=== PATIENT | female | born 1935 | race Caucasian/White ===

== ENCOUNTER 2016-05-14 08:45 | Inpatient (IN) | payer MEDICARE, OTHER ==
[~2016-05-14] VITALS: Ht 157.5 cm; Wt 57.1 kg
[2016-05-14] VITALS (28 sets, daily range): BP systolic 67–162; RESP 14–26; TEMP 93–97.9; BMI 11.3
[2016-05-14] MEDS ORDERED: NALOXONE 0.4 MG/ML AMP ONE (08:55)
[2016-05-14] MEDS ORDERED: SODIUM CHLORIDE 0.9% 1,000 ML ONE ×2 (09:10→12:02)
[2016-05-14] MEDS ORDERED: SODIUM CHLORIDE 0.9% 100 ML IV ONE (12:07)
[2016-05-14] MEDS ORDERED: CEFTRIAXONE 1 GM VIAL ONE (12:07)
[2016-05-14] MEDS ORDERED: DUONEB INH ONE ×2 (13:11)
[2016-05-14] MEDS ORDERED: SALINE FLUSH 10 ML FLUSH PRN (13:15)
[2016-05-14] MEDS ORDERED: DUONEB INH PRN (13:15)
[2016-05-14] MEDS ORDERED: ACETAMINOPHEN 325 MG TAB PO PRN (13:15)
[2016-05-14] MEDS ORDERED: BISACODYL EC 5 MG TAB PO PRN (13:15)
[2016-05-14] MEDS ORDERED: ALU/MAG/SIM 30 ML UDC PO PRN (13:15)
[2016-05-14] MEDS ORDERED: ONDANSETRON 4 MG TAB PO PRN (13:15)
[2016-05-14] MEDS ORDERED: BISACODYL 10 MG SUPP RECTAL PRN ×2 (13:15)
[2016-05-14] MEDS ORDERED: Atorvastatin 10 MG TAB PO SCH (13:15)
[2016-05-14] MEDS ORDERED: MAG HYDROX 30 ML UDC PO PRN ×2 (13:15)
[2016-05-14] MEDS: SALINE FLUSH 10 ML FLUSH SCH ×2 (13:15→20:00)
[2016-05-14] MEDS: AQUAPHOR OINT 1.75 OZ TOPICAL SCH ×2 (13:15→21:41)
[2016-05-14] MEDS ORDERED: CEPACOL LOZENGE PO PRN (13:15)
[2016-05-14] MEDS: FLUTICASONE 0.05% NA BTL NARE EACH SCH ×2 (13:15→21:00)
[2016-05-14] MEDS ORDERED: NEB-ALBUTEROL 2.5 MG/3 ML INH PRN ×2 (13:15)
[2016-05-14] MEDS: DUONEB INH SCH ×3 (15:00→23:37)
[2016-05-14] MEDS ORDERED: PHARMACY TO DOSE VANCOMYCIN IV SCH (16:10)
[2016-05-14] MEDS ORDERED: PHARMACY TO DOSE LEVAQUIN IV SCH (16:10)
[2016-05-14] MEDS ORDERED: PHARMACY TO DOSE MERREM XX SCH (16:10)
[2016-05-14] MEDS ORDERED: LEVOTHYROXINE 0.075 MG TAB PO SCH (16:23)
[2016-05-14] MEDS ORDERED: PANTOPRAZOLE 40 MG TAB PO SCH (16:27)
[2016-05-14] MEDS ORDERED: SUCCINYLCHOLINE 20 MG/ML VL ONE (16:34)
[2016-05-14] MEDS ORDERED: KETAMINE INJ 50 MG/ML VIAL ONE (16:34)
[2016-05-14] MEDS ORDERED: PROPOFOL 100 ML 100 ML IV ONE (16:35)
[2016-05-14] MEDS ORDERED: SUCCINYLCHOLINE 20 MG/ML VL IV ONE (16:40)
[2016-05-14] MEDS ORDERED: KETAMINE 500 MG/10 ML IV ONE (16:40)
[2016-05-14] MEDS ORDERED: LINEZOLID INJ IV SCH (17:00)
[2016-05-14] MEDS: LINEZOLID 600 MG/300 ML 300 ML IV SCH (17:21)
[2016-05-14] MEDS ORDERED: LACT RINGERS 1,000 ML IV ONE ×3 (17:40)
[2016-05-14] MEDS: METHYLPRED SOD SUCC 125 MG/2 ML VIAL IV SCH (18:01)
[2016-05-14] MEDS: PROPOFOL 100 ML 100 ML IV PRN (18:03)
[2016-05-14] MEDS: NEB-BROVANA 15 MCG/2 ML INH SCH (18:26)
[2016-05-14] MEDS: NEB-BUDESONIDE 0.5 MG INH SCH (18:26)
[2016-05-14] MEDS ORDERED: *PATIENT RECEIVING TUBE FEEDS, ASSESS/ADJUST MEDICATIONS NG SCH (19:25)
[2016-05-14] MEDS ORDERED: NOREPINEPHRINE 16 MG in DEXTROSE 5% 234 ML IV SCH ×2 (19:25→19:40)
[2016-05-14] MEDS ORDERED: ALU/MAG/SIM 30 ML UDC NG PRN (19:50)
[2016-05-14] MEDS ORDERED: MAG HYDROX 30 ML UDC NG PRN ×2 (19:50)
[2016-05-14] MEDS ORDERED: ONDANSETRON 4 MG TAB NG PRN (19:55)
[2016-05-14] MEDS ORDERED: MISSING DOSE XX ONE (19:55)
[2016-05-14] MEDS: LEVOFLOXACIN 750 MG/150 ML 150 ML IV SCH (21:40)
[2016-05-14] MEDS: Atorvastatin 10 MG TAB NG SCH (21:41)
[2016-05-15] VITALS (57 sets, daily range): BP systolic 79–135; RESP 6–33; TEMP 97–99.1; Ht 157.5 cm; Wt 57.1 kg
[2016-05-15] MEDS: PROPOFOL 100 ML 100 ML IV PRN ×3 (02:00→22:46)
[2016-05-15] MEDS: LACT RINGERS 1,000 ML IV SCH (02:00)
[2016-05-15] MEDS: DUONEB INH SCH ×6 (02:51→22:55)
[2016-05-15] MEDS: SODIUM CHLORIDE 0.9% FLUSH BAG 500 ML IV SCH (05:06)
[2016-05-15] MEDS ORDERED: MISSING DOSE XX ONE (05:25)
[2016-05-15] MEDS: NEB-BUDESONIDE 0.5 MG INH SCH ×2 (07:27→18:52)
[2016-05-15] MEDS: NEB-BROVANA 15 MCG/2 ML INH SCH ×2 (07:27→18:52)
[2016-05-15] MEDS: LANSOPRAZOLE 30 MG SOLUTAB NG SCH (07:43)
[2016-05-15] MEDS: LEVOTHYROXINE 0.075 MG TAB NG SCH (07:43)
[2016-05-15] MEDS: LINEZOLID 600 MG/300 ML 300 ML IV SCH ×2 (07:44→20:13)
[2016-05-15] MEDS: LEVOFLOXACIN 750 MG/150 ML 150 ML IV SCH (07:44)
[2016-05-15] MEDS: FLUTICASONE 0.05% NA BTL NARE EACH SCH ×2 (07:44→19:25)
[2016-05-15] MEDS: SALINE FLUSH 10 ML FLUSH SCH ×2 (07:44→19:57)
[2016-05-15] MEDS: METHYLPRED SOD SUCC 125 MG/2 ML VIAL IV SCH ×2 (07:45→20:13)
[2016-05-15] MEDS: AQUAPHOR OINT 1.75 OZ TOPICAL SCH ×2 (07:45→19:26)
[2016-05-15] MEDS ORDERED: SODIUM PHOSPHATE 30 MM in SODIUM CHLORIDE 0.9% 250 ML IV ONE (09:10)
[2016-05-15] MEDS ORDERED: VASOPRESSIN 40 UNITS in SODIUM CHLORIDE 0.9% 38 ML IV SCH (09:15)
[2016-05-15] MEDS: MAGNESIUM SULF 1 GM/100 ML 100 ML IV SCH ×4 (09:57→13:46)
[2016-05-15] MEDS: Atorvastatin 10 MG TAB NG SCH (20:14)
[2016-05-16] VITALS (42 sets, daily range): BP systolic 86–129; RESP 18–37; TEMP 97.1–98.2
[2016-05-16] MEDS: DUONEB INH SCH ×6 (02:22→22:49)
[2016-05-16] MEDS: LEVOTHYROXINE 0.075 MG TAB NG SCH (05:27)
[2016-05-16] MEDS: LANSOPRAZOLE 30 MG SOLUTAB NG SCH (05:27)
[2016-05-16] MEDS: PROPOFOL 100 ML 100 ML IV PRN (05:28)
[2016-05-16] MEDS: LACT RINGERS 1,000 ML IV SCH ×2 (05:28→15:15)
[2016-05-16] MEDS: SODIUM CHLORIDE 0.9% FLUSH BAG 500 ML IV SCH (05:28)
[2016-05-16] MEDS ORDERED: MISSING DOSE XX ONE (06:35)
[2016-05-16] MEDS: NEB-BUDESONIDE 0.5 MG INH SCH ×2 (07:03→18:49)
[2016-05-16] MEDS: NEB-BROVANA 15 MCG/2 ML INH SCH ×2 (07:03→18:49)
[2016-05-16] MEDS ORDERED: KCL 20 MEQ/15 ML UDC PO ONE (07:20)
[2016-05-16] MEDS: AQUAPHOR OINT 1.75 OZ TOPICAL SCH ×2 (07:53→21:00)
[2016-05-16] MEDS: METHYLPRED SOD SUCC 125 MG/2 ML VIAL IV SCH (07:54)
[2016-05-16] MEDS: SALINE FLUSH 10 ML FLUSH SCH ×2 (07:54→20:24)
[2016-05-16] MEDS: FLUTICASONE 0.05% NA BTL NARE EACH SCH ×2 (07:55→21:00)
[2016-05-16] MEDS: LINEZOLID 600 MG/300 ML 300 ML IV SCH ×2 (07:55→20:24)
[2016-05-16] MEDS ORDERED: PHARMACY TO DOSE ZOSYN IV SCH (09:40)
[2016-05-16] MEDS: PIPERACIL/TAZO 3.375GM/50ML 50 ML IV SCH ×2 (13:27→18:45)
[2016-05-16] MEDS ORDERED: METHYLPRED SOD SUCC 40 MG VIAL IV SCH (20:00)
[2016-05-16] MEDS: Atorvastatin 10 MG TAB NG SCH (21:00)
[2016-05-17] VITALS (25 sets, daily range): BP systolic 82–122; RESP 16–34; TEMP 97.8–98.4
[2016-05-17] MEDS: PIPERACIL/TAZO 3.375GM/50ML 50 ML IV SCH ×2 (00:38→06:03)
[2016-05-17] MEDS: DUONEB INH SCH ×6 (02:42→23:14)
[2016-05-17] MEDS: SODIUM CHLORIDE 0.9% FLUSH BAG 500 ML IV SCH ×2 (05:50→09:42)
[2016-05-17] MEDS: ACETAMINOPHEN 650 MG/20.3 ML UDC NG PRN ×2 (06:04→20:22)
[2016-05-17] MEDS: LEVOTHYROXINE 0.075 MG TAB NG SCH (06:04)
[2016-05-17] MEDS: LANSOPRAZOLE 30 MG SOLUTAB NG SCH (06:04)
[2016-05-17] MEDS: NEB-BROVANA 15 MCG/2 ML INH SCH ×2 (07:02→18:33)
[2016-05-17] MEDS: NEB-BUDESONIDE 0.5 MG INH SCH ×2 (07:02→18:33)
[2016-05-17] MEDS ORDERED: PHARMACY TO DOSE BACTRIM IV IV SCH (07:05)
[2016-05-17] MEDS ORDERED: POTASSIUM PHOSPHATE 30 MMOL in SODIUM CHLORIDE 0.9% 250 ML IV ONE (07:05)
[2016-05-17] MEDS ORDERED: TMP IV SCH (08:00)
[2016-05-17] MEDS ORDERED: SMX IV SCH (08:00)
[2016-05-17] MEDS ORDERED: TRIMETH IV SCH (08:13)
[2016-05-17] MEDS ORDERED: DEXTROSE 5% IV SCH (08:13)
[2016-05-17] MEDS ORDERED: SULFAMETH IV SCH (08:13)
[2016-05-17] MEDS: PREDNISONE 20 MG TAB PO SCH (09:37)
[2016-05-17] MEDS: AQUAPHOR OINT 1.75 OZ TOPICAL SCH ×2 (09:38→20:22)
[2016-05-17] MEDS: SALINE FLUSH 10 ML FLUSH SCH ×2 (09:38→20:22)
[2016-05-17] MEDS: FLUTICASONE 0.05% NA BTL NARE EACH SCH ×2 (09:38→20:23)
[2016-05-17] MEDS: MAGNESIUM SULF 1 GM/100 ML 100 ML IV SCH ×2 (09:42→11:13)
[2016-05-17] MEDS ORDERED: KETOROLAC 30 MG/ML VIAL IV ONE ×2 (11:55→20:20)
[2016-05-17] MEDS ORDERED: MISSING DOSE XX ONE (16:30)
[2016-05-17] MEDS ORDERED: TRIMETH IV ONE (17:00)
[2016-05-17] MEDS ORDERED: SULFAMETH IV ONE (17:00)
[2016-05-17] MEDS ORDERED: DEXTROSE 5% IV ONE (17:00)
[2016-05-17] MEDS: Atorvastatin 10 MG TAB NG SCH (20:04)
[2016-05-18] VITALS (24 sets, daily range): BP systolic 81–147; RESP 14–30; TEMP 97.1–98.4
[2016-05-18] MEDS: TRIMETH IV SCH ×3 (00:38→16:49)
[2016-05-18] MEDS: DEXTROSE 5% IV SCH ×3 (00:38→16:49)
[2016-05-18] MEDS: SULFAMETH IV SCH ×3 (00:38→16:49)
[2016-05-18] MEDS: DUONEB INH SCH ×6 (02:54→23:12)
[2016-05-18] MEDS: SODIUM CHLORIDE 0.9% FLUSH BAG 500 ML IV SCH (05:22)
[2016-05-18] MEDS: NEB-BUDESONIDE 0.5 MG INH SCH ×2 (06:40→18:51)
[2016-05-18] MEDS: NEB-BROVANA 15 MCG/2 ML INH SCH ×2 (06:40→18:51)
[2016-05-18] MEDS: LANSOPRAZOLE 30 MG SOLUTAB NG SCH (07:24)
[2016-05-18] MEDS: LEVOTHYROXINE 0.075 MG TAB NG SCH (07:24)
[2016-05-18] MEDS: PREDNISONE 20 MG TAB PO SCH (07:24)
[2016-05-18] MEDS: SALINE FLUSH 10 ML FLUSH SCH ×2 (07:33→20:00)
[2016-05-18] MEDS ORDERED: MISSING DOSE XX ONE ×2 (07:35→15:50)
[2016-05-18] MEDS: AQUAPHOR OINT 1.75 OZ TOPICAL SCH ×2 (08:14→21:37)
[2016-05-18] MEDS: FLUTICASONE 0.05% NA BTL NARE EACH SCH ×2 (08:15→21:36)
[2016-05-18] MEDS ORDERED: POTASSIUM CHLORIDE PREMIX 50 ML IV ONE (08:20)
[2016-05-18] MEDS: Atorvastatin 10 MG TAB NG SCH (21:36)
[2016-05-19] VITALS (40 sets, daily range): BP systolic 82–115; RESP 11–25; TEMP 97.7–99.1
[2016-05-19] MEDS: DEXTROSE 5% IV SCH ×3 (00:27→16:26)
[2016-05-19] MEDS: TRIMETH IV SCH ×3 (00:27→16:26)
[2016-05-19] MEDS: SULFAMETH IV SCH ×3 (00:27→16:26)
[2016-05-19] MEDS: DUONEB INH SCH ×6 (03:17→22:46)
[2016-05-19] MEDS: SODIUM CHLORIDE 0.9% FLUSH BAG 500 ML IV SCH (06:00)
[2016-05-19] MEDS: NEB-BROVANA 15 MCG/2 ML INH SCH ×2 (06:36→18:49)
[2016-05-19] MEDS: NEB-BUDESONIDE 0.5 MG INH SCH ×2 (06:36→18:49)
[2016-05-19] MEDS ORDERED: MISSING DOSE XX ONE ×2 (07:40→16:00)
[2016-05-19] MEDS: LANSOPRAZOLE 30 MG SOLUTAB NG SCH (07:49)
[2016-05-19] MEDS: PREDNISONE 20 MG TAB PO SCH (07:50)
[2016-05-19] MEDS: FLUTICASONE 0.05% NA BTL NARE EACH SCH ×2 (07:50→22:24)
[2016-05-19] MEDS: AQUAPHOR OINT 1.75 OZ TOPICAL SCH ×2 (07:50→22:25)
[2016-05-19] MEDS: LEVOTHYROXINE 0.075 MG TAB NG SCH (07:50)
[2016-05-19] MEDS: SALINE FLUSH 10 ML FLUSH SCH ×2 (07:51→22:27)
[2016-05-19] MEDS: Atorvastatin 10 MG TAB NG SCH (22:24)
[2016-05-20] VITALS (22 sets, daily range): BP systolic 83–140; RESP 15–22; TEMP 95.7–98.3
[2016-05-20] MEDS: TRIMETH IV SCH ×3 (01:00→16:19)
[2016-05-20] MEDS: DEXTROSE 5% IV SCH ×3 (01:00→16:19)
[2016-05-20] MEDS: SULFAMETH IV SCH ×3 (01:00→16:19)
[2016-05-20] MEDS: DUONEB INH SCH ×6 (02:30→23:21)
[2016-05-20] MEDS: SODIUM CHLORIDE 0.9% FLUSH BAG 500 ML IV SCH (03:15)
[2016-05-20] MEDS ORDERED: ALU/MAG/SIM 30 ML UDC PO PRN (03:30)
[2016-05-20] MEDS ORDERED: MAG HYDROX 30 ML UDC PO PRN (03:30)
[2016-05-20] MEDS ORDERED: ONDANSETRON 4 MG TAB PO PRN (03:30)
[2016-05-20] MEDS: PANTOPRAZOLE 40 MG TAB PO SCH (06:06)
[2016-05-20] MEDS: LEVOTHYROXINE 0.075 MG TAB PO SCH (06:06)
[2016-05-20] MEDS: NEB-BROVANA 15 MCG/2 ML INH SCH ×2 (07:06→19:40)
[2016-05-20] MEDS: NEB-BUDESONIDE 0.5 MG INH SCH ×2 (07:06→19:40)
[2016-05-20] MEDS ORDERED: MISSING DOSE XX ONE ×2 (07:25→20:30)
[2016-05-20] MEDS: SALINE FLUSH 10 ML FLUSH SCH ×2 (08:00→20:46)
[2016-05-20] MEDS: PREDNISONE 20 MG TAB PO SCH (08:28)
[2016-05-20] MEDS: FLUTICASONE 0.05% NA BTL NARE EACH SCH ×2 (08:30→21:01)
[2016-05-20] MEDS: AQUAPHOR OINT 1.75 OZ TOPICAL SCH ×2 (08:30→21:02)
[2016-05-20] MEDS: Atorvastatin 10 MG TAB PO SCH (20:46)
[2016-05-20] MEDS: ACETAMINOPHEN 325 MG TAB PO PRN (20:47)
[2016-05-21] MEDS: SULFAMETH IV SCH ×3 (01:04→17:32)
[2016-05-21] MEDS: DEXTROSE 5% IV SCH ×3 (01:04→17:32)
[2016-05-21] MEDS: TRIMETH IV SCH ×3 (01:04→17:32)
[2016-05-21] MEDS: DUONEB INH SCH ×7 (02:54→22:07)
[2016-05-21 03:46] VITALS: BP_SYST 122; RESP 16; TEMP 95.8
[2016-05-21] MEDS: LEVOTHYROXINE 0.075 MG TAB PO SCH ×2 (05:53→07:00)
[2016-05-21] MEDS: PANTOPRAZOLE 40 MG TAB PO SCH ×2 (05:53→07:00)
[2016-05-21] MEDS: SODIUM CHLORIDE 0.9% FLUSH BAG 500 ML IV SCH ×2 (05:54)
[2016-05-21] MEDS: NEB-BROVANA 15 MCG/2 ML INH SCH ×3 (06:55→18:33)
[2016-05-21] MEDS: NEB-BUDESONIDE 0.5 MG INH SCH ×3 (06:55→18:33)
[2016-05-21 08:22] VITALS: BP_SYST 110; RESP 16; TEMP 96.8
[2016-05-21] MEDS: SALINE FLUSH 10 ML FLUSH SCH ×2 (09:09→20:49)
[2016-05-21] MEDS: FLUTICASONE 0.05% NA BTL NARE EACH SCH ×2 (09:09→20:49)
[2016-05-21] MEDS: PREDNISONE 20 MG TAB PO SCH (09:10)
[2016-05-21] MEDS: AQUAPHOR OINT 1.75 OZ TOPICAL SCH ×2 (09:27→20:50)
[2016-05-21 11:30] VITALS: BP_SYST 118; RESP 16; TEMP 96.4
[2016-05-21 14:54] VITALS: BP_SYST 120; TEMP 96.8
[2016-05-21 19:00] VITALS: BP_SYST 124; RESP 18; TEMP 96.4
[2016-05-21] MEDS: Atorvastatin 10 MG TAB PO SCH (20:49)
[2016-05-21] MEDS: Dronabinol 2.5 MG CAP PO SCH (22:30)
[2016-05-21] MEDS ORDERED: MISSING DOSE XX ONE (23:15)
[2016-05-21 23:21] VITALS: BP_SYST 112
[2016-05-22] MEDS: DEXTROSE 5% IV SCH ×3 (00:19→16:33)
[2016-05-22] MEDS: SULFAMETH IV SCH ×3 (00:19→16:33)
[2016-05-22] MEDS: TRIMETH IV SCH ×3 (00:19→16:33)
[2016-05-22] MEDS: DUONEB INH SCH ×6 (02:07→22:29)
[2016-05-22] MEDS: SODIUM CHLORIDE 0.9% FLUSH BAG 500 ML IV SCH ×2 (05:31→05:32)
[2016-05-22] MEDS: PANTOPRAZOLE 40 MG TAB PO SCH (06:22)
[2016-05-22] MEDS: LEVOTHYROXINE 0.075 MG TAB PO SCH (06:22)
[2016-05-22] MEDS: NEB-BUDESONIDE 0.5 MG INH SCH ×2 (07:00→18:07)
[2016-05-22] MEDS: NEB-BROVANA 15 MCG/2 ML INH SCH ×2 (07:00→18:06)
[2016-05-22] MEDS ORDERED: MISSING DOSE XX ONE (09:05)
[2016-05-22] MEDS: SALINE FLUSH 10 ML FLUSH SCH ×2 (09:54→20:00)
[2016-05-22] MEDS: Dronabinol 2.5 MG CAP PO SCH ×2 (09:54→20:29)
[2016-05-22] MEDS: FLUTICASONE 0.05% NA BTL NARE EACH SCH ×2 (09:55→20:29)
[2016-05-22] MEDS: AQUAPHOR OINT 1.75 OZ TOPICAL SCH ×2 (09:55→21:00)
[2016-05-22] MEDS ORDERED: ONDANSETRON 4 MG VIAL IV PUSH PRN (10:50)
[2016-05-22 11:01] VITALS: BP_SYST 120; RESP 16; TEMP 97.1
[2016-05-22] MEDS ORDERED: PHARMACY TO DOSE BACTRIM IV IV SCH (14:25)
[2016-05-22 16:01] VITALS: BP_SYST 122; RESP 16
[2016-05-22 20:01] VITALS: BP_SYST 120; TEMP 97.2
[2016-05-22] MEDS: Atorvastatin 10 MG TAB PO SCH (20:29)
[2016-05-22] MEDS: MIRTAZAPINE 15 MG TAB PO SCH (20:29)
[2016-05-23] MEDS ORDERED: MISSING DOSE XX ONE ×2 (00:15→23:05)
[2016-05-23] MEDS: SULFAMETH IV SCH ×3 (00:31→16:22)
[2016-05-23] MEDS: DEXTROSE 5% IV SCH ×3 (00:31→16:22)
[2016-05-23] MEDS: TRIMETH IV SCH ×3 (00:31→16:22)
[2016-05-23 00:35] VITALS: BP_SYST 126; RESP 18
[2016-05-23] MEDS: DUONEB INH SCH ×8 (03:20→22:30)
[2016-05-23] MEDS: SODIUM CHLORIDE 0.9% FLUSH BAG 500 ML IV SCH ×2 (05:41→06:03)
[2016-05-23] MEDS: PANTOPRAZOLE 40 MG TAB PO SCH ×2 (06:04→06:57)
[2016-05-23] MEDS: LEVOTHYROXINE 0.075 MG TAB PO SCH ×2 (06:04→06:57)
[2016-05-23] MEDS: NEB-BROVANA 15 MCG/2 ML INH SCH ×4 (06:49→18:17)
[2016-05-23] MEDS: NEB-BUDESONIDE 0.5 MG INH SCH ×4 (06:49→18:17)
[2016-05-23 07:54] VITALS: BP_SYST 114; RESP 18; TEMP 93.5
[2016-05-23] MEDS: FLUTICASONE 0.05% NA BTL NARE EACH SCH ×2 (09:00→20:42)
[2016-05-23] MEDS: SALINE FLUSH 10 ML FLUSH SCH ×2 (09:13→19:36)
[2016-05-23] MEDS: Dronabinol 2.5 MG CAP PO SCH ×2 (09:14→20:41)
[2016-05-23] MEDS: AQUAPHOR OINT 1.75 OZ TOPICAL SCH ×2 (09:14→20:42)
[2016-05-23 10:01] VITALS: BP_SYST 116; TEMP 97.1
[2016-05-23 11:42] VITALS: BP_SYST 150; RESP 18; TEMP 97.9
[2016-05-23 16:14] VITALS: BP_SYST 116; RESP 20; TEMP 98
[2016-05-23 19:44] VITALS: BP_SYST 116; RESP 20; TEMP 96.9
[2016-05-23] MEDS: MIRTAZAPINE 15 MG TAB PO SCH (20:42)
[2016-05-23] MEDS: Atorvastatin 10 MG TAB PO SCH (20:42)
[2016-05-23] MEDS ORDERED: METOPROLOL 5 MG/5 ML VIAL IV ONE (21:25)
[2016-05-24] VITALS (12 sets, daily range): BP systolic 96–132; RESP 17–20; TEMP 97.1–97.7
[2016-05-24] MEDS: SULFAMETH IV SCH ×3 (00:04→16:20)
[2016-05-24] MEDS: TRIMETH IV SCH ×3 (00:04→16:20)
[2016-05-24] MEDS: DEXTROSE 5% IV SCH ×3 (00:04→16:20)
[2016-05-24] MEDS: DUONEB INH SCH ×6 (02:22→22:23)
[2016-05-24] MEDS: SODIUM CHLORIDE 0.9% FLUSH BAG 500 ML IV SCH ×2 (05:43→06:15)
[2016-05-24] MEDS: PANTOPRAZOLE 40 MG TAB PO SCH (06:17)
[2016-05-24] MEDS: LEVOTHYROXINE 0.075 MG TAB PO SCH (06:17)
[2016-05-24] MEDS: NEB-BROVANA 15 MCG/2 ML INH SCH ×2 (07:22→18:56)
[2016-05-24] MEDS: NEB-BUDESONIDE 0.5 MG INH SCH ×2 (07:22→18:56)
[2016-05-24] MEDS: FLUTICASONE 0.05% NA BTL NARE EACH SCH ×2 (08:32→21:00)
[2016-05-24] MEDS: SALINE FLUSH 10 ML FLUSH SCH ×2 (08:32→21:50)
[2016-05-24] MEDS: AQUAPHOR OINT 1.75 OZ TOPICAL SCH ×2 (08:33→21:00)
[2016-05-24] MEDS: Dronabinol 2.5 MG CAP PO SCH ×2 (08:34→21:53)
[2016-05-24] MEDS ORDERED: DIPHENHYDRAMINE 25 MG CAP PO ONE (11:06)
[2016-05-24] MEDS ORDERED: Furosemide 20 MG/2 ML VIAL IV ONE ×2 (12:00→13:00)
[2016-05-24] MEDS: Atorvastatin 10 MG TAB PO SCH (21:53)
[2016-05-24] MEDS: MIRTAZAPINE 15 MG TAB PO SCH (21:54)
[2016-05-25] VITALS (9 sets, daily range): BP systolic 110–144; RESP 16–20; TEMP 97.3–97.8
[2016-05-25] MEDS: DEXTROSE 5% IV SCH ×3 (01:29→17:50)
[2016-05-25] MEDS: TRIMETH IV SCH ×3 (01:29→17:50)
[2016-05-25] MEDS: SULFAMETH IV SCH ×3 (01:29→17:50)
[2016-05-25] MEDS: DUONEB INH SCH ×6 (02:26→22:43)
[2016-05-25] MEDS: SODIUM CHLORIDE 0.9% FLUSH BAG 500 ML IV SCH ×2 (05:18→06:35)
[2016-05-25] MEDS: PANTOPRAZOLE 40 MG TAB PO SCH (06:35)
[2016-05-25] MEDS: LEVOTHYROXINE 0.075 MG TAB PO SCH (06:35)
[2016-05-25] MEDS: NEB-BUDESONIDE 0.5 MG INH SCH ×2 (07:56→19:12)
[2016-05-25] MEDS: NEB-BROVANA 15 MCG/2 ML INH SCH ×2 (07:56→19:12)
[2016-05-25] MEDS: SALINE FLUSH 10 ML FLUSH SCH ×2 (08:00→20:46)
[2016-05-25] MEDS: Dronabinol 2.5 MG CAP PO SCH ×2 (10:20→21:00)
[2016-05-25] MEDS: FLUTICASONE 0.05% NA BTL NARE EACH SCH ×2 (10:21→20:46)
[2016-05-25] MEDS: AQUAPHOR OINT 1.75 OZ TOPICAL SCH ×2 (10:21→20:46)
[2016-05-25] MEDS: MAG HYDROX 30 ML UDC PO PRN (17:50)
[2016-05-25] MEDS: ENOXAPARIN 60 MG/0.6 ML SYR SUBQ SCH (20:45)
[2016-05-25] MEDS: SODIUM CHLORIDE 0.9% 1,000 ML IV SCH (20:46)
[2016-05-25] MEDS: MIRTAZAPINE 15 MG TAB PO SCH (21:00)
[2016-05-25] MEDS: Atorvastatin 10 MG TAB PO SCH (21:00)
[2016-05-26] MEDS ORDERED: MISSING DOSE XX ONE ×3 (00:20→23:55)
[2016-05-26] MEDS: TRIMETH IV SCH ×3 (00:41→18:42)
[2016-05-26] MEDS: DEXTROSE 5% IV SCH ×3 (00:41→18:42)
[2016-05-26] MEDS: SULFAMETH IV SCH ×3 (00:41→18:42)
[2016-05-26] MEDS: DUONEB INH SCH ×6 (02:43→22:53)
[2016-05-26 02:53] VITALS: BP_SYST 110; RESP 16; TEMP 97.5
[2016-05-26] MEDS: NEB-BROVANA 15 MCG/2 ML INH SCH ×2 (05:15→19:00)
[2016-05-26] MEDS: NEB-BUDESONIDE 0.5 MG INH SCH ×2 (05:15→19:00)
[2016-05-26] MEDS: SODIUM CHLORIDE 0.9% FLUSH BAG 500 ML IV SCH ×2 (05:47)
[2016-05-26] MEDS: ENOXAPARIN 60 MG/0.6 ML SYR SUBQ SCH ×2 (06:32→18:12)
[2016-05-26] MEDS: PANTOPRAZOLE 40 MG TAB PO SCH (07:00)
[2016-05-26] MEDS: LEVOTHYROXINE 0.075 MG TAB PO SCH (07:00)
[2016-05-26 08:06] VITALS: BP_SYST 130; RESP 16; TEMP 96.1
[2016-05-26] MEDS: SALINE FLUSH 10 ML FLUSH SCH ×2 (08:57→21:34)
[2016-05-26] MEDS: FLUTICASONE 0.05% NA BTL NARE EACH SCH ×2 (08:57→21:34)
[2016-05-26] MEDS: Dronabinol 2.5 MG CAP PO SCH ×2 (08:58→21:35)
[2016-05-26] MEDS: AQUAPHOR OINT 1.75 OZ TOPICAL SCH ×2 (08:58→21:34)
[2016-05-26 11:47] VITALS: BP_SYST 120; TEMP 96.2
[2016-05-26] MEDS: ACETAMINOPHEN 325 MG TAB PO PRN (14:05)
[2016-05-26 15:19] VITALS: BP_SYST 116
[2016-05-26] MEDS: SODIUM CHLORIDE 0.9% 1,000 ML IV SCH (17:59)
[2016-05-26] MEDS: MAG HYDROX 30 ML UDC PO PRN (18:12)
[2016-05-26 19:23] VITALS: BP_SYST 120; RESP 16; TEMP 97
[2016-05-26] MEDS: Atorvastatin 10 MG TAB PO SCH (21:00)
[2016-05-26] MEDS: MIRTAZAPINE 15 MG TAB PO SCH (21:00)
[2016-05-27] VITALS (12 sets, daily range): BP systolic 110–140; RESP 14–18; TEMP 96.4–98.9
[2016-05-27] MEDS: SULFAMETH IV SCH ×3 (00:29→17:53)
[2016-05-27] MEDS: TRIMETH IV SCH ×3 (00:29→17:53)
[2016-05-27] MEDS: DEXTROSE 5% IV SCH ×3 (00:29→17:53)
[2016-05-27] MEDS: DUONEB INH SCH ×6 (02:23→22:21)
[2016-05-27] MEDS: SODIUM CHLORIDE 0.9% 1,000 ML IV SCH ×2 (04:19→17:42)
[2016-05-27] MEDS: LEVOTHYROXINE 0.075 MG TAB PO SCH (05:10)
[2016-05-27] MEDS: SODIUM CHLORIDE 0.9% FLUSH BAG 500 ML IV SCH ×2 (05:10)
[2016-05-27] MEDS: PANTOPRAZOLE 40 MG TAB PO SCH (05:10)
[2016-05-27] MEDS: NEB-BROVANA 15 MCG/2 ML INH SCH ×2 (06:50→18:55)
[2016-05-27] MEDS: NEB-BUDESONIDE 0.5 MG INH SCH ×2 (06:50→18:55)
[2016-05-27] MEDS: FLUTICASONE 0.05% NA BTL NARE EACH SCH ×2 (09:00→20:33)
[2016-05-27] MEDS: Dronabinol 2.5 MG CAP PO SCH (09:00)
[2016-05-27] MEDS: AQUAPHOR OINT 1.75 OZ TOPICAL SCH ×2 (09:00→20:34)
[2016-05-27] MEDS ORDERED: MISSING DOSE XX ONE ×3 (09:05→20:40)
[2016-05-27] MEDS: SALINE FLUSH 10 ML FLUSH SCH ×2 (10:25→20:33)
[2016-05-27] MEDS ORDERED: CEFAZOLIN 1,000 MG in DEXTROSE 5% 50 ML IV ONE (12:25)
[2016-05-27] MEDS ORDERED: LACT RINGERS 1,000 ML IV SCH (12:50)
[2016-05-27] MEDS ORDERED: LIDOCAINE 1% BUFFERED 1 ML SYR INTRADERM PRN (12:50)
[2016-05-27] MEDS ORDERED: *PATIENT RECEIVING TUBE FEEDS, ASSESS/ADJUST MEDICATIONS PEG SCH (19:20)
[2016-05-27] MEDS ORDERED: ACETAMINOPHEN 650 MG/20.3 ML UDC NG PRN (19:25)
[2016-05-27] MEDS ORDERED: ALU/MAG/SIM 30 ML UDC PEG PRN (19:25)
[2016-05-27] MEDS ORDERED: MAG HYDROX 30 ML UDC PEG PRN ×2 (19:30)
[2016-05-27] MEDS: Atorvastatin 10 MG TAB PEG SCH (20:32)
[2016-05-27] MEDS: Dronabinol 2.5 MG CAP PEG SCH (20:49)
[2016-05-27] MEDS: ACETAMINOPHEN 650 MG/20.3 ML UDC PEG PRN (20:50)
[2016-05-27] MEDS ORDERED: MIRTAZAPINE 15 MG TAB PEG SCH (21:00)
[2016-05-28] VITALS: BP_SYST 112; RESP 20; TEMP 98.2
[2016-05-28] MEDS: TRIMETH IV SCH ×2 (01:05→09:12)
[2016-05-28] MEDS: SULFAMETH IV SCH ×2 (01:05→09:12)
[2016-05-28] MEDS: DEXTROSE 5% IV SCH ×2 (01:05→09:12)
[2016-05-28] MEDS: DUONEB INH SCH ×6 (02:46→23:20)
[2016-05-28] MEDS: SODIUM CHLORIDE 0.9% FLUSH BAG 500 ML IV SCH ×2 (04:31→04:32)
[2016-05-28] MEDS: SODIUM CHLORIDE 0.9% 1,000 ML IV SCH (04:45)
[2016-05-28 04:53] VITALS: BP_SYST 124; RESP 18; TEMP 98.5
[2016-05-28] MEDS: LEVOTHYROXINE 0.075 MG TAB PEG SCH (06:07)
[2016-05-28] MEDS: LANSOPRAZOLE 30 MG SOLUTAB PEG SCH (06:07)
[2016-05-28] MEDS: ACETAMINOPHEN 650 MG/20.3 ML UDC PEG PRN ×2 (06:12→14:42)
[2016-05-28] MEDS: NEB-BROVANA 15 MCG/2 ML INH SCH ×2 (06:35→19:19)
[2016-05-28] MEDS: NEB-BUDESONIDE 0.5 MG INH SCH ×2 (06:35→19:19)
[2016-05-28 07:36] VITALS: BP_SYST 132; RESP 22; TEMP 99
[2016-05-28] MEDS ORDERED: MISSING DOSE XX ONE (07:40)
[2016-05-28] MEDS: Dronabinol 2.5 MG CAP PEG SCH ×3 (09:00→20:20)
[2016-05-28] MEDS: SALINE FLUSH 10 ML FLUSH SCH ×2 (09:11→20:19)
[2016-05-28] MEDS: AQUAPHOR OINT 1.75 OZ TOPICAL SCH ×2 (09:11→20:20)
[2016-05-28] MEDS: FLUTICASONE 0.05% NA BTL NARE EACH SCH ×2 (09:11→20:20)
[2016-05-28 11:02] VITALS: BP_SYST 108; RESP 18; TEMP 97.1
[2016-05-28] MEDS ORDERED: QUEtiapine 25 MG TAB PO SCH (15:05)
[2016-05-28] MEDS: NEB-NACL 3% 4 ML NEBU INH SCH ×2 (16:00→23:20)
[2016-05-28 19:26] VITALS: BP_SYST 118; RESP 20; TEMP 97.2
[2016-05-28] MEDS: Atorvastatin 10 MG TAB PEG SCH (20:20)
[2016-05-28] MEDS: TRIMETHOPRIM PEG SCH (20:20)
[2016-05-28] MEDS: QUEtiapine 25 MG TAB GTUBE SCH (20:20)
[2016-05-28] MEDS: SULFAMETHOXAZOLE PEG SCH (20:20)
[2016-05-28 22:56] VITALS: BP_SYST 106; RESP 18; TEMP 98
[2016-05-29] MEDS: DUONEB INH SCH ×6 (02:53→23:32)
[2016-05-29 02:58] VITALS: BP_SYST 118; RESP 20; TEMP 98
[2016-05-29] MEDS: SODIUM CHLORIDE 0.9% FLUSH BAG 500 ML IV SCH ×2 (03:28)
[2016-05-29] MEDS: ACETAMINOPHEN 650 MG/20.3 ML UDC PEG PRN ×2 (04:41→09:19)
[2016-05-29] MEDS: LANSOPRAZOLE 30 MG SOLUTAB PEG SCH (06:21)
[2016-05-29] MEDS: LEVOTHYROXINE 0.075 MG TAB PEG SCH (06:21)
[2016-05-29] MEDS: BACITRACIN OINT TOPICAL SCH ×3 (06:46→19:52)
[2016-05-29 07:00] VITALS: BP_SYST 130; RESP 22; TEMP 96.8
[2016-05-29] MEDS: NEB-NACL 3% 4 ML NEBU INH SCH ×6 (07:12→23:31)
[2016-05-29] MEDS: NEB-BROVANA 15 MCG/2 ML INH SCH ×2 (07:12→19:28)
[2016-05-29] MEDS: NEB-BUDESONIDE 0.5 MG INH SCH ×2 (07:12→19:28)
[2016-05-29] MEDS ORDERED: PHARMACY TO DOSE VANCOMYCIN IV SCH (07:55)
[2016-05-29] MEDS ORDERED: PHARMACY TO DOSE ZOSYN IV SCH (07:55)
[2016-05-29] MEDS ORDERED: DUONEB INH PRN (07:55)
[2016-05-29] MEDS ORDERED: SODIUM CHLORIDE 0.9% 1,000 ML IV SCH (08:10)
[2016-05-29] MEDS: Dronabinol 2.5 MG CAP PEG SCH ×2 (09:00→19:51)
[2016-05-29] MEDS: PIPERACIL/TAZO 4.5GM/100ML 100 ML IV SCH ×3 (09:13→17:54)
[2016-05-29] MEDS: QUEtiapine 25 MG TAB GTUBE SCH (09:14)
[2016-05-29] MEDS: TRIMETHOPRIM PEG SCH ×2 (09:15→19:51)
[2016-05-29] MEDS: SULFAMETHOXAZOLE PEG SCH ×2 (09:15→19:51)
[2016-05-29] MEDS: AQUAPHOR OINT 1.75 OZ TOPICAL SCH ×2 (09:16→19:51)
[2016-05-29] MEDS: FLUTICASONE 0.05% NA BTL NARE EACH SCH ×2 (09:16→19:51)
[2016-05-29] MEDS: SALINE FLUSH 10 ML FLUSH SCH ×2 (09:16→19:50)
[2016-05-29] MEDS: VANCOMYCIN 1,250 MG in SODIUM CHLORIDE 0.9% 250 ML IV SCH ×2 (10:22→19:49)
[2016-05-29 10:51] VITALS: BP_SYST 108; RESP 20; TEMP 96.3
[2016-05-29 14:32] VITALS: BP_SYST 116; TEMP 96
[2016-05-29] MEDS: Atorvastatin 10 MG TAB PEG SCH (19:51)
[2016-05-29 21:08] VITALS: BP_SYST 112; RESP 20; TEMP 96.6
[2016-05-30] VITALS (7 sets, daily range): BP systolic 110–120; RESP 16–20; TEMP 96.2–96.9
[2016-05-30] MEDS: PIPERACIL/TAZO 4.5GM/100ML 100 ML IV SCH ×5 (00:09→23:27)
[2016-05-30] MEDS: DUONEB INH SCH ×6 (02:58→22:31)
[2016-05-30] MEDS: NEB-NACL 3% 4 ML NEBU INH SCH ×6 (02:58→22:31)
[2016-05-30] MEDS: SODIUM CHLORIDE 0.9% FLUSH BAG 500 ML IV SCH ×2 (05:09)
[2016-05-30] MEDS: NEB-BUDESONIDE 0.5 MG INH SCH ×2 (06:21→18:31)
[2016-05-30] MEDS: NEB-BROVANA 15 MCG/2 ML INH SCH ×2 (06:21→18:32)
[2016-05-30] MEDS ORDERED: MISSING DOSE XX ONE (06:40)
[2016-05-30] MEDS: LANSOPRAZOLE 30 MG SOLUTAB PEG SCH (06:51)
[2016-05-30] MEDS: LEVOTHYROXINE 0.075 MG TAB PEG SCH (06:56)
[2016-05-30] MEDS: TRIMETHOPRIM PEG SCH (09:15)
[2016-05-30] MEDS: SULFAMETHOXAZOLE PEG SCH (09:15)
[2016-05-30] MEDS: FLUTICASONE 0.05% NA BTL NARE EACH SCH ×2 (09:15→21:18)
[2016-05-30] MEDS: BACITRACIN OINT TOPICAL SCH ×2 (09:16→21:17)
[2016-05-30] MEDS: AQUAPHOR OINT 1.75 OZ TOPICAL SCH ×2 (09:16→21:17)
[2016-05-30] MEDS: VANCOMYCIN 1,250 MG in SODIUM CHLORIDE 0.9% 250 ML IV SCH ×2 (09:16→21:42)
[2016-05-30] MEDS: Dronabinol 2.5 MG CAP PEG SCH ×2 (09:16→21:17)
[2016-05-30] MEDS: SALINE FLUSH 10 ML FLUSH SCH ×2 (09:17→21:16)
[2016-05-30] MEDS: MAGNESIUM SULF 1 GM/100 ML 100 ML IV SCH ×2 (09:30→10:56)
[2016-05-30] MEDS ORDERED: CHLORASEPTIC 180 ML BTL PO PRN (16:40)
[2016-05-30] MEDS: Atorvastatin 10 MG TAB PEG SCH (21:17)
[2016-05-30] MEDS ORDERED: DEXTROSE 50% SYRINGE 50 ML IV ONE (23:45)
[2016-05-30] MEDS ORDERED: DEXTROSE 50% 50 ML ONE (23:49)
[2016-05-31] VITALS (7 sets, daily range): BP systolic 108–142; RESP 16–30; TEMP 96.3–98.5
[2016-05-31] MEDS: NEB-NACL 3% 4 ML NEBU INH SCH ×8 (03:43→22:53)
[2016-05-31] MEDS: DUONEB INH SCH ×8 (03:43→22:53)
[2016-05-31] MEDS: SODIUM CHLORIDE 0.9% FLUSH BAG 500 ML IV SCH ×2 (05:29→05:39)
[2016-05-31] MEDS: PIPERACIL/TAZO 4.5GM/100ML 100 ML IV SCH ×3 (05:29→18:05)
[2016-05-31] MEDS: LEVOTHYROXINE 0.075 MG TAB PEG SCH (06:18)
[2016-05-31] MEDS: LANSOPRAZOLE 30 MG SOLUTAB PEG SCH (06:18)
[2016-05-31] MEDS: NEB-BUDESONIDE 0.5 MG INH SCH ×2 (06:43→19:12)
[2016-05-31] MEDS: NEB-BROVANA 15 MCG/2 ML INH SCH ×2 (06:43→19:12)
[2016-05-31] MEDS: VANCOMYCIN 1,250 MG in SODIUM CHLORIDE 0.9% 250 ML IV SCH ×2 (08:35→20:51)
[2016-05-31] MEDS: SALINE FLUSH 10 ML FLUSH SCH ×2 (08:35→20:50)
[2016-05-31] MEDS: Dronabinol 2.5 MG CAP PEG SCH ×2 (08:35→20:50)
[2016-05-31] MEDS: AQUAPHOR OINT 1.75 OZ TOPICAL SCH ×2 (08:35→20:52)
[2016-05-31] MEDS: FLUTICASONE 0.05% NA BTL NARE EACH SCH ×2 (08:35→20:51)
[2016-05-31] MEDS: BACITRACIN OINT TOPICAL SCH ×2 (08:36→20:52)
[2016-05-31] MEDS ORDERED: HALOPERIDOL 5 MG/ML VIAL IV PRN (17:30)
[2016-05-31] MEDS: Atorvastatin 10 MG TAB PEG SCH (20:50)
[2016-06-01] VITALS (7 sets, daily range): BP systolic 108–120; RESP 16–20; TEMP 96.6–98.3
[2016-06-01] MEDS: PIPERACIL/TAZO 4.5GM/100ML 100 ML IV SCH ×5 (00:17→23:08)
[2016-06-01] MEDS: NEB-NACL 3% 4 ML NEBU INH SCH ×6 (02:56→23:22)
[2016-06-01] MEDS: DUONEB INH SCH ×6 (02:56→23:22)
[2016-06-01] MEDS: NEB-BROVANA 15 MCG/2 ML INH SCH ×2 (05:12→17:18)
[2016-06-01] MEDS: NEB-BUDESONIDE 0.5 MG INH SCH ×2 (05:13→17:18)
[2016-06-01] MEDS: SODIUM CHLORIDE 0.9% FLUSH BAG 500 ML IV SCH ×2 (05:24→06:49)
[2016-06-01] MEDS: LANSOPRAZOLE 30 MG SOLUTAB PEG SCH (06:50)
[2016-06-01] MEDS: LEVOTHYROXINE 0.075 MG TAB PEG SCH (06:50)
[2016-06-01] MEDS: VANCOMYCIN 1,250 MG in SODIUM CHLORIDE 0.9% 250 ML IV SCH ×3 (08:15→21:00)
[2016-06-01] MEDS: Dronabinol 2.5 MG CAP PEG SCH ×2 (08:15→20:34)
[2016-06-01] MEDS: AQUAPHOR OINT 1.75 OZ TOPICAL SCH ×2 (08:15→20:34)
[2016-06-01] MEDS: FLUTICASONE 0.05% NA BTL NARE EACH SCH ×2 (08:15→20:33)
[2016-06-01] MEDS: SALINE FLUSH 10 ML FLUSH SCH ×2 (08:15→20:33)
[2016-06-01] MEDS: BACITRACIN OINT TOPICAL SCH ×2 (08:16→20:35)
[2016-06-01] MEDS: METRONIDAZOLE 500MG/100ML 100 ML IV SCH ×3 (10:28→23:48)
[2016-06-01] MEDS: Atorvastatin 10 MG TAB PEG SCH (20:33)
[2016-06-02] MEDS: NEB-NACL 3% 4 ML NEBU INH SCH ×6 (03:04→23:46)
[2016-06-02] MEDS: DUONEB INH SCH ×6 (03:04→23:46)
[2016-06-02 03:15] VITALS: BP_SYST 120; RESP 16; TEMP 98.2
[2016-06-02] MEDS: SODIUM CHLORIDE 0.9% FLUSH BAG 500 ML IV SCH ×2 (06:00→06:34)
[2016-06-02] MEDS: PIPERACIL/TAZO 4.5GM/100ML 100 ML IV SCH ×4 (06:33→23:20)
[2016-06-02] MEDS: LEVOTHYROXINE 0.075 MG TAB PEG SCH (06:33)
[2016-06-02] MEDS: LANSOPRAZOLE 30 MG SOLUTAB PEG SCH (06:33)
[2016-06-02] MEDS: NEB-BUDESONIDE 0.5 MG INH SCH ×2 (06:51→18:36)
[2016-06-02] MEDS: NEB-BROVANA 15 MCG/2 ML INH SCH ×2 (06:51→18:36)
[2016-06-02 08:03] VITALS: BP_SYST 108; RESP 20; TEMP 98.5
[2016-06-02] MEDS: Dronabinol 2.5 MG CAP PEG SCH ×2 (08:38→21:05)
[2016-06-02] MEDS: FLUTICASONE 0.05% NA BTL NARE EACH SCH ×2 (08:38→21:06)
[2016-06-02] MEDS: SALINE FLUSH 10 ML FLUSH SCH ×2 (08:39→21:06)
[2016-06-02] MEDS: METRONIDAZOLE 500MG/100ML 100 ML IV SCH ×2 (08:39→16:10)
[2016-06-02] MEDS: BACITRACIN OINT TOPICAL SCH ×2 (08:39→21:07)
[2016-06-02] MEDS: AQUAPHOR OINT 1.75 OZ TOPICAL SCH ×2 (08:39→21:07)
[2016-06-02] MEDS ORDERED: KCL 20 MEQ/15 ML UDC PEG ONE (11:10)
[2016-06-02 11:49] VITALS: BP_SYST 108; RESP 20; TEMP 98.3
[2016-06-02] MEDS: AMITRIPTYLINE 25 MG TAB PEG SCH (12:27)
[2016-06-02 15:57] VITALS: BP_SYST 112; RESP 20; TEMP 98.6
[2016-06-02] MEDS: VANCOMYCIN 750 MG in SODIUM CHLORIDE 0.9% 250 ML IV SCH (16:10)
[2016-06-02] MEDS: SACCHA BOULARDII 250MG CAP PEG SCH ×2 (17:58→21:06)
[2016-06-02 20:03] VITALS: BP_SYST 126; RESP 18; TEMP 97.1
[2016-06-02] MEDS: Atorvastatin 10 MG TAB PEG SCH (21:06)
[2016-06-02] MEDS: MIRTAZAPINE 15 MG TAB PEG SCH (21:06)
[2016-06-02 23:33] VITALS: BP_SYST 116; RESP 20; TEMP 98
[2016-06-03] MEDS: METRONIDAZOLE 500MG/100ML 100 ML IV SCH ×3 (00:01→18:06)
[2016-06-03] MEDS: NEB-NACL 3% 4 ML NEBU INH SCH ×6 (02:45→23:14)
[2016-06-03] MEDS: DUONEB INH SCH ×6 (02:45→23:15)
[2016-06-03 03:15] VITALS: BP_SYST 136; RESP 20; TEMP 97.2
[2016-06-03] MEDS: VANCOMYCIN 750 MG in SODIUM CHLORIDE 0.9% 250 ML IV SCH ×2 (04:02→18:05)
[2016-06-03] MEDS: NEB-BROVANA 15 MCG/2 ML INH SCH ×2 (05:22→17:05)
[2016-06-03] MEDS: NEB-BUDESONIDE 0.5 MG INH SCH ×2 (05:22→17:05)
[2016-06-03] MEDS: SODIUM CHLORIDE 0.9% FLUSH BAG 500 ML IV SCH ×2 (06:00→06:31)
[2016-06-03] MEDS: PIPERACIL/TAZO 4.5GM/100ML 100 ML IV SCH ×4 (06:30→23:49)
[2016-06-03] MEDS: LANSOPRAZOLE 30 MG SOLUTAB PEG SCH (06:30)
[2016-06-03] MEDS: LEVOTHYROXINE 0.075 MG TAB PEG SCH (06:30)
[2016-06-03 07:37] VITALS: BP_SYST 118; RESP 20; TEMP 96.5
[2016-06-03] MEDS: AMITRIPTYLINE 25 MG TAB PEG SCH (09:21)
[2016-06-03] MEDS: FLUTICASONE 0.05% NA BTL NARE EACH SCH ×2 (09:21→23:01)
[2016-06-03] MEDS: SALINE FLUSH 10 ML FLUSH SCH ×2 (09:21→20:00)
[2016-06-03] MEDS: SACCHA BOULARDII 250MG CAP PEG SCH ×3 (09:22→21:00)
[2016-06-03] MEDS: Dronabinol 2.5 MG CAP PEG SCH ×2 (09:22→21:00)
[2016-06-03] MEDS: AQUAPHOR OINT 1.75 OZ TOPICAL SCH ×2 (09:23→23:01)
[2016-06-03] MEDS: BACITRACIN OINT TOPICAL SCH ×2 (09:23→23:01)
[2016-06-03 11:00] VITALS: BP_SYST 122; RESP 20; TEMP 96.3
[2016-06-03] MEDS ORDERED: DEXTROSE 50% SYRINGE 50 ML IV ONE (12:40)
[2016-06-03 15:05] VITALS: BP_SYST 138; RESP 20; TEMP 97.3
[2016-06-03] MEDS: POTASSIUM CHLORIDE PREMIX 50 ML IV SCH ×3 (16:15→18:38)
[2016-06-03] MEDS: PANTOPRAZOLE 80 MG in SODIUM CHLORIDE 0.9% 250 ML IV SCH (18:49)
[2016-06-03 20:50] VITALS: BP_SYST 122; RESP 20; TEMP 98.1
[2016-06-03] MEDS: Atorvastatin 10 MG TAB PEG SCH (21:00)
[2016-06-03] MEDS: MIRTAZAPINE 15 MG TAB PEG SCH (21:00)
[2016-06-03 23:07] VITALS: BP_SYST 114; RESP 18; TEMP 96.1
[2016-06-04] MEDS: METRONIDAZOLE 500MG/100ML 100 ML IV SCH ×3 (00:53→15:46)
[2016-06-04] MEDS: NEB-NACL 3% 4 ML NEBU INH SCH ×6 (02:22→22:39)
[2016-06-04] MEDS: DUONEB INH SCH ×6 (02:22→22:39)
[2016-06-04 03:00] VITALS: BP_SYST 124; RESP 18; TEMP 97.9
[2016-06-04] MEDS: VANCOMYCIN 750 MG in SODIUM CHLORIDE 0.9% 250 ML IV SCH ×2 (04:13→16:27)
[2016-06-04] MEDS: PANTOPRAZOLE 80 MG in SODIUM CHLORIDE 0.9% 250 ML IV SCH ×2 (04:13→12:06)
[2016-06-04] MEDS: SODIUM CHLORIDE 0.9% FLUSH BAG 500 ML IV SCH ×2 (05:10)
[2016-06-04] MEDS: LEVOTHYROXINE 0.075 MG TAB PEG SCH (06:25)
[2016-06-04] MEDS: PIPERACIL/TAZO 4.5GM/100ML 100 ML IV SCH ×3 (06:51→17:40)
[2016-06-04] MEDS: NEB-BUDESONIDE 0.5 MG INH SCH ×2 (06:58→18:35)
[2016-06-04] MEDS: NEB-BROVANA 15 MCG/2 ML INH SCH ×2 (06:58→18:35)
[2016-06-04 07:27] VITALS: BP_SYST 122; RESP 18; TEMP 97.3
[2016-06-04] MEDS: SALINE FLUSH 10 ML FLUSH SCH ×2 (08:00→20:00)
[2016-06-04] MEDS: SACCHA BOULARDII 250MG CAP PEG SCH ×3 (08:48→21:48)
[2016-06-04] MEDS: Dronabinol 2.5 MG CAP PEG SCH ×2 (08:48→21:47)
[2016-06-04] MEDS: AMITRIPTYLINE 25 MG TAB PEG SCH (08:48)
[2016-06-04] MEDS: BACITRACIN OINT TOPICAL SCH ×2 (08:49→21:48)
[2016-06-04] MEDS: AQUAPHOR OINT 1.75 OZ TOPICAL SCH ×2 (08:49→21:48)
[2016-06-04] MEDS: FLUTICASONE 0.05% NA BTL NARE EACH SCH ×2 (08:58→21:48)
[2016-06-04 12:00] VITALS: BP_SYST 115; RESP 18; TEMP 97
[2016-06-04] MEDS ORDERED: DEXTROSE 5% SALINE 0.9% 1,000 ML IV SCH (15:15)
[2016-06-04 15:26] VITALS: BP_SYST 128; RESP 18; TEMP 97
[2016-06-04] MEDS: POTASSIUM CHLORIDE PREMIX 50 ML IV SCH ×3 (18:38→23:11)
[2016-06-04 20:13] VITALS: BP_SYST 132; RESP 20; TEMP 96.6
[2016-06-04] MEDS: GELCLAIR 15 ML GEL TOPICAL SCH (21:00)
[2016-06-04] MEDS: MIRTAZAPINE 15 MG TAB PEG SCH (21:47)
[2016-06-04] MEDS: Atorvastatin 10 MG TAB PEG SCH (21:47)
[2016-06-04 23:28] VITALS: BP_SYST 130; RESP 18; TEMP 96.3
[2016-06-05] VITALS (7 sets, daily range): BP systolic 112–150; RESP 16–22; TEMP 94.6–97.8
[2016-06-05] MEDS: SUCRALFATE 1GM/10ML SUSP TOPICAL SCH ×4 (00:47→16:35)
[2016-06-05] MEDS: PIPERACIL/TAZO 4.5GM/100ML 100 ML IV SCH ×4 (00:48→18:35)
[2016-06-05] MEDS: PANTOPRAZOLE 80 MG in SODIUM CHLORIDE 0.9% 250 ML IV SCH ×2 (00:48→12:45)
[2016-06-05] MEDS: METRONIDAZOLE 500MG/100ML 100 ML IV SCH ×3 (02:14→16:29)
[2016-06-05] MEDS: NEB-NACL 3% 4 ML NEBU INH SCH ×6 (02:47→22:53)
[2016-06-05] MEDS: DUONEB INH SCH ×6 (02:47→22:53)
[2016-06-05] MEDS: VANCOMYCIN 750 MG in SODIUM CHLORIDE 0.9% 250 ML IV SCH ×2 (04:17→17:14)
[2016-06-05] MEDS: SODIUM CHLORIDE 0.9% FLUSH BAG 500 ML IV SCH ×2 (06:00→06:09)
[2016-06-05] MEDS: ACETAMINOPHEN 650 MG/20.3 ML UDC PEG PRN (06:10)
[2016-06-05] MEDS: LEVOTHYROXINE 0.075 MG TAB PEG SCH (06:11)
[2016-06-05] MEDS: NEB-BUDESONIDE 0.5 MG INH SCH ×2 (07:10→18:55)
[2016-06-05] MEDS: NEB-BROVANA 15 MCG/2 ML INH SCH ×2 (07:10→18:55)
[2016-06-05] MEDS: SALINE FLUSH 10 ML FLUSH SCH ×2 (09:23→20:49)
[2016-06-05] MEDS: AMITRIPTYLINE 25 MG TAB PEG SCH (09:52)
[2016-06-05] MEDS: Dronabinol 2.5 MG CAP PEG SCH ×2 (09:52→20:50)
[2016-06-05] MEDS: FLUTICASONE 0.05% NA BTL NARE EACH SCH ×2 (09:52→20:50)
[2016-06-05] MEDS: SACCHA BOULARDII 250MG CAP PEG SCH ×3 (09:52→20:49)
[2016-06-05] MEDS: AQUAPHOR OINT 1.75 OZ TOPICAL SCH ×2 (09:53→20:51)
[2016-06-05] MEDS: BACITRACIN OINT TOPICAL SCH ×2 (09:53→20:51)
[2016-06-05] MEDS: POTASSIUM CHLORIDE PREMIX 50 ML IV SCH ×5 (10:28→23:10)
[2016-06-05] MEDS: NYSTATIN 500,000 UNITS/5 ML SUSP SWISH.SWAL SCH ×4 (11:28→20:50)
[2016-06-05] MEDS: KCL 20 MEQ/15 ML UDC PEG SCH (16:35)
[2016-06-05] MEDS ORDERED: MISSING DOSE XX ONE (17:25)
[2016-06-05] MEDS: Atorvastatin 10 MG TAB PEG SCH (20:49)
[2016-06-05] MEDS: MIRTAZAPINE 15 MG TAB PEG SCH (20:50)
[2016-06-05] MEDS ORDERED: KCL 20 MEQ/15 ML UDC PO ONE (22:55)
[2016-06-05] MEDS: MAGNESIUM SULF 1 GM/100 ML 100 ML IV SCH (23:22)
[2016-06-06] MEDS: MAGNESIUM SULF 1 GM/100 ML 100 ML IV SCH (02:08)
[2016-06-06] MEDS: POTASSIUM CHLORIDE PREMIX 50 ML IV SCH ×3 (02:09→04:28)
[2016-06-06] MEDS: DUONEB INH SCH ×6 (02:37→22:07)
[2016-06-06] MEDS: NEB-NACL 3% 4 ML NEBU INH SCH ×6 (02:37→22:07)
[2016-06-06] MEDS: METRONIDAZOLE 500MG/100ML 100 ML IV SCH ×3 (03:04→15:52)
[2016-06-06 04:03] VITALS: BP_SYST 120; RESP 20; TEMP 95.7
[2016-06-06] MEDS: VANCOMYCIN 750 MG in SODIUM CHLORIDE 0.9% 250 ML IV SCH ×2 (04:29→16:00)
[2016-06-06] MEDS: SODIUM CHLORIDE 0.9% FLUSH BAG 500 ML IV SCH ×3 (04:29→05:25)
[2016-06-06] MEDS: PIPERACIL/TAZO 4.5GM/100ML 100 ML IV SCH ×4 (05:40→18:42)
[2016-06-06] MEDS: SUCRALFATE 1GM/10ML SUSP TOPICAL SCH ×3 (05:40→17:03)
[2016-06-06] MEDS: LANSOPRAZOLE 30 MG SOLUTAB PEG SCH (05:40)
[2016-06-06] MEDS: LEVOTHYROXINE 0.075 MG TAB PEG SCH (05:40)
[2016-06-06] MEDS: NEB-BROVANA 15 MCG/2 ML INH SCH ×2 (06:53→18:13)
[2016-06-06] MEDS: NEB-BUDESONIDE 0.5 MG INH SCH ×2 (06:53→18:13)
[2016-06-06 07:26] VITALS: BP_SYST 110; RESP 18; TEMP 97.6
[2016-06-06] MEDS: KCL 20 MEQ/15 ML UDC PEG SCH (08:35)
[2016-06-06] MEDS: Dronabinol 2.5 MG CAP PEG SCH ×2 (08:35→21:33)
[2016-06-06] MEDS: NYSTATIN 500,000 UNITS/5 ML SUSP SWISH.SWAL SCH ×3 (08:36→17:29)
[2016-06-06] MEDS: AMITRIPTYLINE 25 MG TAB PEG SCH (08:36)
[2016-06-06] MEDS: SALINE FLUSH 10 ML FLUSH SCH ×2 (08:36→21:33)
[2016-06-06] MEDS: FLUTICASONE 0.05% NA BTL NARE EACH SCH ×2 (08:36→21:33)
[2016-06-06] MEDS: SACCHA BOULARDII 250MG CAP PEG SCH ×3 (08:37→21:33)
[2016-06-06] MEDS: AQUAPHOR OINT 1.75 OZ TOPICAL SCH ×2 (08:37→21:34)
[2016-06-06] MEDS: BACITRACIN OINT TOPICAL SCH ×2 (08:45→21:34)
[2016-06-06 10:51] VITALS: BP_SYST 132; RESP 18; TEMP 97.5
[2016-06-06 15:30] VITALS: BP_SYST 130; RESP 18; TEMP 97
[2016-06-06] MEDS: GELCLAIR 15 ML GEL TOPICAL SCH ×2 (17:03→21:34)
[2016-06-06] MEDS: VANCOMYCIN 1,000 MG in SODIUM CHLORIDE 0.9% 250 ML IV SCH (17:29)
[2016-06-06 19:20] VITALS: BP_SYST 132; RESP 18; TEMP 96.4
[2016-06-06] MEDS: ACETAMINOPHEN 650 MG/20.3 ML UDC PEG PRN (21:32)
[2016-06-06] MEDS: MIRTAZAPINE 15 MG TAB PEG SCH (21:33)
[2016-06-06] MEDS: Atorvastatin 10 MG TAB PEG SCH (21:33)
[2016-06-06 22:53] VITALS: BP_SYST 118; RESP 18; TEMP 96.9
[2016-06-07] MEDS: METRONIDAZOLE 500MG/100ML 100 ML IV SCH ×4 (00:20→23:02)
[2016-06-07] MEDS: NYSTATIN 500,000 UNITS/5 ML SUSP SWISH.SWAL SCH ×5 (00:20→20:22)
[2016-06-07] MEDS: PIPERACIL/TAZO 4.5GM/100ML 100 ML IV SCH ×5 (00:20→23:02)
[2016-06-07] MEDS: NEB-NACL 3% 4 ML NEBU INH SCH ×6 (02:28→22:16)
[2016-06-07] MEDS: DUONEB INH SCH ×6 (02:28→22:16)
[2016-06-07 02:35] VITALS: BP_SYST 112; RESP 18
[2016-06-07] MEDS: VANCOMYCIN 1,000 MG in SODIUM CHLORIDE 0.9% 250 ML IV SCH ×2 (04:55→17:58)
[2016-06-07] MEDS: SODIUM CHLORIDE 0.9% FLUSH BAG 500 ML IV SCH ×3 (06:00→06:08)
[2016-06-07] MEDS: LEVOTHYROXINE 0.075 MG TAB PEG SCH (06:07)
[2016-06-07] MEDS: LANSOPRAZOLE 30 MG SOLUTAB PEG SCH (06:07)
[2016-06-07] MEDS: SALINE FLUSH 10 ML FLUSH SCH ×2 (06:07→20:23)
[2016-06-07] MEDS: ACETAMINOPHEN 650 MG/20.3 ML UDC PEG PRN ×2 (06:07→13:34)
[2016-06-07] MEDS: NEB-BUDESONIDE 0.5 MG INH SCH ×2 (07:21→18:22)
[2016-06-07] MEDS: NEB-BROVANA 15 MCG/2 ML INH SCH ×2 (07:21→18:22)
[2016-06-07 07:44] VITALS: BP_SYST 118; RESP 20; TEMP 97
[2016-06-07] MEDS: SACCHA BOULARDII 250MG CAP PEG SCH ×3 (09:00→20:21)
[2016-06-07] MEDS: FLUTICASONE 0.05% NA BTL NARE EACH SCH ×2 (10:10→20:22)
[2016-06-07] MEDS: AQUAPHOR OINT 1.75 OZ TOPICAL SCH ×2 (10:11→20:22)
[2016-06-07] MEDS: KCL 20 MEQ/15 ML UDC PEG SCH (10:11)
[2016-06-07] MEDS: GELCLAIR 15 ML GEL TOPICAL SCH ×3 (10:13→20:23)
[2016-06-07] MEDS: BACITRACIN OINT TOPICAL SCH ×2 (10:14→20:23)
[2016-06-07] MEDS: AMITRIPTYLINE 25 MG TAB PEG SCH (10:15)
[2016-06-07] MEDS: Dronabinol 2.5 MG CAP PEG SCH ×2 (10:15→20:23)
[2016-06-07 11:20] VITALS: BP_SYST 112; RESP 20; TEMP 97.1
[2016-06-07] MEDS: METOCLOPRAMIDE 10 MG/2 ML VIAL IV PUSH SCH ×2 (13:32→17:06)
[2016-06-07] MEDS: DOCUSATE SOD 100 MG/10 ML UDC PEG SCH ×2 (13:32→20:21)
[2016-06-07] MEDS: SENNA 8.6 MG TAB PEG SCH ×2 (13:32→20:21)
[2016-06-07 15:45] VITALS: BP_SYST 120; RESP 18; TEMP 96.4
[2016-06-07 19:16] VITALS: BP_SYST 122; RESP 18; TEMP 97.8
[2016-06-07] MEDS: Atorvastatin 10 MG TAB PEG SCH (20:22)
[2016-06-07] MEDS: MIRTAZAPINE 15 MG TAB PEG SCH (20:22)
[2016-06-07 23:08] VITALS: BP_SYST 132; RESP 18; TEMP 97.9
[2016-06-08] MEDS: DUONEB INH SCH ×6 (03:02→23:20)
[2016-06-08] MEDS: NEB-NACL 3% 4 ML NEBU INH SCH ×6 (03:02→23:20)
[2016-06-08 03:31] VITALS: BP_SYST 110; RESP 18; TEMP 96.5
[2016-06-08] MEDS: VANCOMYCIN 1,000 MG in SODIUM CHLORIDE 0.9% 250 ML IV SCH ×2 (04:14→16:44)
[2016-06-08] MEDS: ACETAMINOPHEN 650 MG/20.3 ML UDC PEG PRN ×2 (04:46→21:26)
[2016-06-08] MEDS ORDERED: MISSING DOSE XX ONE ×3 (04:50→09:50)
[2016-06-08] MEDS: SODIUM CHLORIDE 0.9% FLUSH BAG 500 ML IV SCH ×3 (04:57→05:42)
[2016-06-08] MEDS: LEVOTHYROXINE 0.075 MG TAB PEG SCH (05:44)
[2016-06-08] MEDS: PIPERACIL/TAZO 4.5GM/100ML 100 ML IV SCH ×4 (05:44→23:47)
[2016-06-08] MEDS: METOCLOPRAMIDE 10 MG/2 ML VIAL IV PUSH SCH ×3 (05:44→16:43)
[2016-06-08] MEDS: NEB-BROVANA 15 MCG/2 ML INH SCH ×2 (06:46→19:58)
[2016-06-08] MEDS: NEB-BUDESONIDE 0.5 MG INH SCH ×2 (06:46→19:58)
[2016-06-08] MEDS ORDERED: LANSOPRAZOLE 15 MG PEG SCH (07:00)
[2016-06-08 07:33] VITALS: BP_SYST 118; RESP 20; TEMP 97.1
[2016-06-08] MEDS: AMITRIPTYLINE 25 MG TAB PEG SCH (09:00)
[2016-06-08] MEDS: AQUAPHOR OINT 1.75 OZ TOPICAL SCH ×2 (10:10→21:24)
[2016-06-08] MEDS: FLUTICASONE 0.05% NA BTL NARE EACH SCH ×2 (10:10→21:23)
[2016-06-08] MEDS: BENZOCAINE 7.5% MM PRN (10:10)
[2016-06-08] MEDS: METRONIDAZOLE 500MG/100ML 100 ML IV SCH (10:11)
[2016-06-08] MEDS: SALINE FLUSH 10 ML FLUSH SCH ×2 (10:11→21:23)
[2016-06-08] MEDS: GELCLAIR 15 ML GEL TOPICAL SCH ×3 (10:16→21:27)
[2016-06-08] MEDS: KCL 20 MEQ/15 ML UDC PEG SCH (10:17)
[2016-06-08] MEDS: NYSTATIN 500,000 UNITS/5 ML SUSP SWISH.SWAL SCH ×4 (10:17→21:25)
[2016-06-08] MEDS: BACITRACIN OINT TOPICAL SCH ×2 (10:18→21:23)
[2016-06-08] MEDS: Dronabinol 2.5 MG CAP PEG SCH ×2 (10:18→21:25)
[2016-06-08] MEDS: SENNA 8.6 MG TAB PEG SCH ×2 (10:18→21:25)
[2016-06-08] MEDS: SACCHA BOULARDII 250MG CAP PEG SCH ×3 (10:20→21:25)
[2016-06-08] MEDS: DOCUSATE SOD 100 MG/10 ML UDC PEG SCH ×2 (10:20→21:25)
[2016-06-08] MEDS ORDERED: PROCHLORPERAZINE 10 MG/2 ML VIAL IV PRN (10:25)
[2016-06-08 11:28] VITALS: BP_SYST 122; RESP 20; TEMP 96.2
[2016-06-08 16:09] VITALS: BP_SYST 110; RESP 18; TEMP 97.1
[2016-06-08 19:45] VITALS: BP_SYST 128; RESP 18; TEMP 96.5
[2016-06-08] MEDS: MIRTAZAPINE 15 MG TAB PEG SCH (21:25)
[2016-06-08] MEDS: Atorvastatin 10 MG TAB PEG SCH (21:25)
[2016-06-08 23:33] VITALS: BP_SYST 114; RESP 16; TEMP 97.9
[2016-06-09] MEDS: NEB-NACL 3% 4 ML NEBU INH SCH ×6 (03:00→23:34)
[2016-06-09] MEDS: DUONEB INH SCH ×6 (03:00→23:34)
[2016-06-09] MEDS: POTASSIUM CHLORIDE PREMIX 10 MEQ in PART FILL PIGGYBACK 1 EA IV SCH ×4 (03:53→07:03)
[2016-06-09 03:59] VITALS: BP_SYST 142; RESP 18; TEMP 96.7
[2016-06-09] MEDS: MAGNESIUM SULF 1 GM/100 ML 100 ML IV SCH ×2 (04:37→08:20)
[2016-06-09] MEDS: VANCOMYCIN 1,000 MG in SODIUM CHLORIDE 0.9% 250 ML IV SCH ×2 (05:53→16:53)
[2016-06-09] MEDS: SODIUM CHLORIDE 0.9% FLUSH BAG 500 ML IV SCH ×3 (05:53→05:54)
[2016-06-09] MEDS: LEVOTHYROXINE 0.075 MG TAB PEG SCH (05:55)
[2016-06-09] MEDS: LANSOPRAZOLE 15 MG PEG SCH (05:55)
[2016-06-09] MEDS: METOCLOPRAMIDE 10 MG/2 ML VIAL IV PUSH SCH ×3 (05:55→16:43)
[2016-06-09] MEDS: NEB-BROVANA 15 MCG/2 ML INH SCH ×2 (06:42→18:55)
[2016-06-09] MEDS: NEB-BUDESONIDE 0.5 MG INH SCH ×2 (06:42→18:55)
[2016-06-09 07:15] VITALS: BP_SYST 140; RESP 18; TEMP 97
[2016-06-09] MEDS: PIPERACIL/TAZO 4.5GM/100ML 100 ML IV SCH ×3 (08:19→17:45)
[2016-06-09] MEDS: SALINE FLUSH 10 ML FLUSH SCH ×2 (08:20→20:25)
[2016-06-09] MEDS: DOCUSATE SOD 100 MG/10 ML UDC PEG SCH ×2 (09:18→20:26)
[2016-06-09] MEDS: KCL 20 MEQ/15 ML UDC PEG SCH (09:18)
[2016-06-09] MEDS: FLUTICASONE 0.05% NA BTL NARE EACH SCH ×2 (09:18→20:26)
[2016-06-09] MEDS: Dronabinol 2.5 MG CAP PEG SCH ×2 (09:19→20:26)
[2016-06-09] MEDS: SACCHA BOULARDII 250MG CAP PEG SCH ×3 (09:19→20:27)
[2016-06-09] MEDS: SENNA 8.6 MG TAB PEG SCH ×2 (09:20→20:26)
[2016-06-09] MEDS: AMITRIPTYLINE 25 MG TAB PEG SCH (09:20)
[2016-06-09] MEDS: NYSTATIN 500,000 UNITS/5 ML SUSP SWISH.SWAL SCH ×4 (09:31→20:26)
[2016-06-09] MEDS: AQUAPHOR OINT 1.75 OZ TOPICAL SCH ×2 (09:32→20:28)
[2016-06-09] MEDS: GELCLAIR 15 ML GEL TOPICAL SCH ×3 (09:32→20:28)
[2016-06-09] MEDS: BACITRACIN OINT TOPICAL SCH ×2 (09:32→20:28)
[2016-06-09 11:53] VITALS: BP_SYST 110; RESP 18; TEMP 97.2
[2016-06-09 15:34] VITALS: BP_SYST 120; RESP 18; TEMP 97.2
[2016-06-09 19:27] VITALS: BP_SYST 122; RESP 18; TEMP 96.5
[2016-06-09] MEDS: Atorvastatin 10 MG TAB PEG SCH (20:26)
[2016-06-09] MEDS: MIRTAZAPINE 15 MG TAB PEG SCH (20:27)
[2016-06-09 23:00] VITALS: BP_SYST 118; RESP 18; TEMP 96.8
[2016-06-10] MEDS: NEB-NACL 3% 4 ML NEBU INH SCH ×6 (03:00→22:57)
[2016-06-10] MEDS: DUONEB INH SCH ×6 (03:00→22:57)
[2016-06-10 04:51] VITALS: BP_SYST 126; RESP 18; TEMP 96.5
[2016-06-10] MEDS: SODIUM CHLORIDE 0.9% FLUSH BAG 500 ML IV SCH ×3 (06:00)
[2016-06-10] MEDS: METOCLOPRAMIDE 10 MG/2 ML VIAL IV PUSH SCH ×3 (06:30→15:24)
[2016-06-10] MEDS: LANSOPRAZOLE 15 MG PEG SCH (06:30)
[2016-06-10] MEDS: LEVOTHYROXINE 0.075 MG TAB PEG SCH (06:30)
[2016-06-10] MEDS: NEB-BUDESONIDE 0.5 MG INH SCH ×2 (06:36→18:46)
[2016-06-10] MEDS: NEB-BROVANA 15 MCG/2 ML INH SCH ×2 (06:36→18:46)
[2016-06-10 08:22] VITALS: BP_SYST 120; RESP 18; TEMP 96.3
[2016-06-10] MEDS: AMITRIPTYLINE 25 MG TAB PEG SCH (08:37)
[2016-06-10] MEDS: SACCHA BOULARDII 250MG CAP PEG SCH ×3 (08:37→22:15)
[2016-06-10] MEDS: Dronabinol 2.5 MG CAP PEG SCH ×2 (08:37→22:28)
[2016-06-10] MEDS: DOCUSATE SOD 100 MG/10 ML UDC PEG SCH ×2 (08:37→22:14)
[2016-06-10] MEDS: SENNA 8.6 MG TAB PEG SCH ×2 (08:37→22:17)
[2016-06-10] MEDS: GELCLAIR 15 ML GEL TOPICAL SCH ×3 (08:37→22:18)
[2016-06-10] MEDS: NYSTATIN 500,000 UNITS/5 ML SUSP SWISH.SWAL SCH ×4 (08:38→22:18)
[2016-06-10] MEDS: KCL 20 MEQ/15 ML UDC PEG SCH (08:38)
[2016-06-10] MEDS: SALINE FLUSH 10 ML FLUSH SCH ×2 (08:38→20:00)
[2016-06-10] MEDS: BACITRACIN OINT TOPICAL SCH ×2 (08:38→22:20)
[2016-06-10] MEDS: AQUAPHOR OINT 1.75 OZ TOPICAL SCH ×2 (08:38→22:19)
[2016-06-10] MEDS: FLUTICASONE 0.05% NA BTL NARE EACH SCH ×2 (08:38→22:14)
[2016-06-10 12:03] VITALS: BP_SYST 122; RESP 18; TEMP 96.8
[2016-06-10 15:15] VITALS: BP_SYST 140; RESP 18; TEMP 96.9
[2016-06-10] MEDS: METRONIDAZOLE 500 MG TAB PEG SCH ×2 (18:26→22:15)
[2016-06-10 20:23] VITALS: BP_SYST 122; RESP 18; TEMP 96.7
[2016-06-10] MEDS: Atorvastatin 10 MG TAB PEG SCH (22:16)
[2016-06-10] MEDS: MIRTAZAPINE 15 MG TAB PEG SCH (22:17)
[2016-06-10 23:17] VITALS: BP_SYST 126; TEMP 97.1
[2016-06-11] MEDS: DUONEB INH SCH ×6 (02:24→22:26)
[2016-06-11] MEDS: NEB-NACL 3% 4 ML NEBU INH SCH ×6 (02:24→22:26)
[2016-06-11] MEDS: SODIUM CHLORIDE 0.9% FLUSH BAG 500 ML IV SCH ×3 (06:00)
[2016-06-11] MEDS: NEB-BROVANA 15 MCG/2 ML INH SCH ×2 (06:40→18:19)
[2016-06-11] MEDS: NEB-BUDESONIDE 0.5 MG INH SCH ×2 (06:40→18:19)
[2016-06-11] MEDS: LEVOTHYROXINE 0.075 MG TAB PEG SCH (06:50)
[2016-06-11] MEDS: LANSOPRAZOLE 15 MG PEG SCH (06:50)
[2016-06-11] MEDS: METOCLOPRAMIDE 10 MG/2 ML VIAL IV PUSH SCH ×3 (06:50→15:43)
[2016-06-11 08:03] VITALS: BP_SYST 128; RESP 18; TEMP 97.4
[2016-06-11] MEDS: METRONIDAZOLE 500 MG TAB PEG SCH ×3 (09:55→21:06)
[2016-06-11] MEDS: SENNA 8.6 MG TAB PEG SCH ×2 (09:56→21:06)
[2016-06-11] MEDS: AMITRIPTYLINE 25 MG TAB PEG SCH (09:56)
[2016-06-11] MEDS: Dronabinol 2.5 MG CAP PEG SCH ×2 (09:56→21:05)
[2016-06-11] MEDS: GELCLAIR 15 ML GEL TOPICAL SCH ×3 (09:56→21:05)
[2016-06-11] MEDS: NYSTATIN 500,000 UNITS/5 ML SUSP SWISH.SWAL SCH ×4 (09:56→21:05)
[2016-06-11] MEDS: DOCUSATE SOD 100 MG/10 ML UDC PEG SCH ×2 (09:56→21:05)
[2016-06-11] MEDS: KCL 20 MEQ/15 ML UDC PEG SCH (09:56)
[2016-06-11] MEDS: FLUTICASONE 0.05% NA BTL NARE EACH SCH ×2 (09:57→21:07)
[2016-06-11] MEDS: BACITRACIN OINT TOPICAL SCH ×2 (09:58→21:08)
[2016-06-11] MEDS: SALINE FLUSH 10 ML FLUSH SCH ×2 (09:58→21:04)
[2016-06-11] MEDS: SACCHA BOULARDII 250MG CAP PEG SCH ×3 (09:58→21:06)
[2016-06-11] MEDS: AQUAPHOR OINT 1.75 OZ TOPICAL SCH ×2 (09:58→21:07)
[2016-06-11 11:35] VITALS: BP_SYST 118; RESP 18; TEMP 96.6
[2016-06-11 13:39] VITALS: BP_SYST 108
[2016-06-11] MEDS ORDERED: BISACODYL 10 MG SUPP RECTAL ONE (14:40)
[2016-06-11 15:07] VITALS: BP_SYST 108; RESP 18; TEMP 96.7
[2016-06-11 19:00] VITALS: BP_SYST 112; RESP 20; TEMP 97.1
[2016-06-11] MEDS ORDERED: Carvedilol 3.125 MG TAB PO SCH (21:00)
[2016-06-11] MEDS: MIRTAZAPINE 15 MG TAB PEG SCH (21:06)
[2016-06-11] MEDS: Furosemide 20 MG/2 ML VIAL IV SCH (21:06)
[2016-06-11] MEDS: Atorvastatin 10 MG TAB PEG SCH (21:06)
[2016-06-12] VITALS: BP_SYST 108; RESP 18; TEMP 96.9
[2016-06-12] MEDS: NEB-NACL 3% 4 ML NEBU INH SCH ×6 (02:19→22:07)
[2016-06-12] MEDS: DUONEB INH SCH ×6 (02:19→22:06)
[2016-06-12 03:31] VITALS: BP_SYST 118; RESP 18; TEMP 96.9
[2016-06-12] MEDS: SODIUM CHLORIDE 0.9% FLUSH BAG 500 ML IV SCH ×3 (05:19→06:28)
[2016-06-12] MEDS: METOCLOPRAMIDE 10 MG/2 ML VIAL IV PUSH SCH ×3 (06:29→16:02)
[2016-06-12] MEDS: LANSOPRAZOLE 15 MG PEG SCH (06:30)
[2016-06-12] MEDS: LEVOTHYROXINE 0.075 MG TAB PEG SCH (06:30)
[2016-06-12] MEDS: NEB-BROVANA 15 MCG/2 ML INH SCH ×2 (06:39→19:00)
[2016-06-12] MEDS: NEB-BUDESONIDE 0.5 MG INH SCH ×2 (06:39→19:00)
[2016-06-12 07:51] VITALS: BP_SYST 112; RESP 16; TEMP 97
[2016-06-12] MEDS: NYSTATIN 500,000 UNITS/5 ML SUSP SWISH.SWAL SCH (09:33)
[2016-06-12] MEDS: DOCUSATE SOD 100 MG/10 ML UDC PEG SCH ×2 (09:33→20:40)
[2016-06-12] MEDS: METRONIDAZOLE 500 MG TAB PEG SCH ×3 (09:34→20:40)
[2016-06-12] MEDS: AMITRIPTYLINE 25 MG TAB PEG SCH (09:34)
[2016-06-12] MEDS: Carvedilol 3.125 MG TAB PEG SCH ×2 (09:34→20:40)
[2016-06-12] MEDS: SACCHA BOULARDII 250MG CAP PEG SCH ×3 (09:34→20:42)
[2016-06-12] MEDS: KCL 20 MEQ/15 ML UDC PEG SCH (09:34)
[2016-06-12] MEDS: SENNA 8.6 MG TAB PEG SCH ×2 (09:34→20:40)
[2016-06-12] MEDS: Dronabinol 2.5 MG CAP PEG SCH ×2 (09:34→20:42)
[2016-06-12] MEDS: GELCLAIR 15 ML GEL TOPICAL SCH ×3 (09:35→20:43)
[2016-06-12] MEDS: BACITRACIN OINT TOPICAL SCH ×2 (09:35→20:43)
[2016-06-12] MEDS: FLUTICASONE 0.05% NA BTL NARE EACH SCH ×2 (09:35→20:40)
[2016-06-12] MEDS: AQUAPHOR OINT 1.75 OZ TOPICAL SCH ×2 (09:35→20:45)
[2016-06-12] MEDS: Furosemide 20 MG/2 ML VIAL IV SCH ×2 (09:35→20:39)
[2016-06-12] MEDS: SALINE FLUSH 10 ML FLUSH SCH ×2 (09:36→20:39)
[2016-06-12] MEDS: ACETAMINOPHEN 650 MG/20.3 ML UDC PEG PRN (10:04)
[2016-06-12 11:41] VITALS: BP_SYST 112; RESP 16; TEMP 96.8
[2016-06-12 14:46] VITALS: BP_SYST 102; RESP 18; TEMP 97
[2016-06-12] MEDS ORDERED: BISACODYL 10 MG SUPP RECTAL ONE (17:50)
[2016-06-12 19:39] VITALS: BP_SYST 100; RESP 16; TEMP 97.4
[2016-06-12] MEDS: Atorvastatin 10 MG TAB PEG SCH (20:40)
[2016-06-12] MEDS: MIRTAZAPINE 15 MG TAB PEG SCH (20:40)
[2016-06-13] VITALS (8 sets, daily range): BP systolic 100–126; RESP 16–18; TEMP 97.6–98.3
[2016-06-13] MEDS: NEB-NACL 3% 4 ML NEBU INH SCH ×6 (02:39→22:54)
[2016-06-13] MEDS: DUONEB INH SCH ×6 (02:39→22:54)
[2016-06-13] MEDS: SODIUM CHLORIDE 0.9% FLUSH BAG 500 ML IV SCH ×3 (02:46→04:45)
[2016-06-13] MEDS: LANSOPRAZOLE 15 MG PEG SCH (04:40)
[2016-06-13] MEDS: LEVOTHYROXINE 0.075 MG TAB PEG SCH (04:40)
[2016-06-13] MEDS: METOCLOPRAMIDE 10 MG/2 ML VIAL IV PUSH SCH ×3 (04:41→16:32)
[2016-06-13] MEDS ORDERED: DILTIAZEM 125 MG in DEXTROSE 125 ML IV PUSH ONE (05:25)
[2016-06-13] MEDS ORDERED: MISSING DOSE XX ONE (05:30)
[2016-06-13] MEDS: NEB-BUDESONIDE 0.5 MG INH SCH ×2 (06:42→19:11)
[2016-06-13] MEDS: NEB-BROVANA 15 MCG/2 ML INH SCH ×2 (06:43→19:11)
[2016-06-13] MEDS: KCL 20 MEQ/15 ML UDC PEG SCH (08:40)
[2016-06-13] MEDS: SENNA 8.6 MG TAB PEG SCH ×2 (08:40→21:34)
[2016-06-13] MEDS: AMITRIPTYLINE 25 MG TAB PEG SCH (08:40)
[2016-06-13] MEDS: DOCUSATE SOD 100 MG/10 ML UDC PEG SCH ×2 (08:40→21:33)
[2016-06-13] MEDS: SACCHA BOULARDII 250MG CAP PEG SCH ×3 (08:40→21:34)
[2016-06-13] MEDS: Dronabinol 2.5 MG CAP PEG SCH ×2 (08:40→21:34)
[2016-06-13] MEDS: Carvedilol 3.125 MG TAB PEG SCH (08:40)
[2016-06-13] MEDS: METRONIDAZOLE 500 MG TAB PEG SCH ×3 (08:40→21:34)
[2016-06-13] MEDS: AQUAPHOR OINT 1.75 OZ TOPICAL SCH ×2 (08:41→21:35)
[2016-06-13] MEDS: SALINE FLUSH 10 ML FLUSH SCH ×2 (08:41→21:33)
[2016-06-13] MEDS: Furosemide 20 MG/2 ML VIAL IV SCH ×2 (08:41→21:36)
[2016-06-13] MEDS: FLUTICASONE 0.05% NA BTL NARE EACH SCH ×2 (08:41→21:35)
[2016-06-13] MEDS: BACITRACIN OINT TOPICAL SCH ×2 (08:42→21:37)
[2016-06-13] MEDS: GELCLAIR 15 ML GEL TOPICAL SCH ×3 (08:57→21:33)
[2016-06-13] MEDS: Carvedilol 6.25 MG TAB PEG SCH (21:34)
[2016-06-13] MEDS: Atorvastatin 10 MG TAB PEG SCH (21:34)
[2016-06-13] MEDS: MIRTAZAPINE 15 MG TAB PEG SCH (21:34)
[2016-06-13] MEDS: BENZOCAINE 7.5% MM PRN (21:35)
[2016-06-14] MEDS: NEB-NACL 3% 4 ML NEBU INH SCH ×7 (02:37→22:33)
[2016-06-14] MEDS: DUONEB INH SCH ×7 (02:37→22:33)
[2016-06-14 03:58] VITALS: BP_SYST 110; RESP 18; TEMP 98.3
[2016-06-14] MEDS: SODIUM CHLORIDE 0.9% FLUSH BAG 500 ML IV SCH ×3 (05:05→05:06)
[2016-06-14] MEDS: LEVOTHYROXINE 0.075 MG TAB PEG SCH (06:11)
[2016-06-14] MEDS: LANSOPRAZOLE 15 MG PEG SCH ×2 (06:11→06:18)
[2016-06-14] MEDS: METOCLOPRAMIDE 10 MG/2 ML VIAL IV PUSH SCH ×3 (06:17→16:00)
[2016-06-14] MEDS: NEB-BROVANA 15 MCG/2 ML INH SCH ×3 (07:00→18:37)
[2016-06-14] MEDS: NEB-BUDESONIDE 0.5 MG INH SCH ×3 (07:00→18:37)
[2016-06-14 08:23] VITALS: BP_SYST 112; RESP 18; TEMP 98.1
[2016-06-14] MEDS: GELCLAIR 15 ML GEL TOPICAL SCH ×3 (09:00→20:50)
[2016-06-14] MEDS: Dronabinol 2.5 MG CAP PEG SCH ×2 (09:00→20:49)
[2016-06-14] MEDS: FLUTICASONE 0.05% NA BTL NARE EACH SCH ×2 (09:01→20:49)
[2016-06-14] MEDS: AMITRIPTYLINE 25 MG TAB PEG SCH (09:01)
[2016-06-14] MEDS: SACCHA BOULARDII 250MG CAP PEG SCH ×3 (09:01→20:48)
[2016-06-14] MEDS: KCL 20 MEQ/15 ML UDC PEG SCH (09:01)
[2016-06-14] MEDS: AQUAPHOR OINT 1.75 OZ TOPICAL SCH ×2 (09:01→20:51)
[2016-06-14] MEDS: SENNA 8.6 MG TAB PEG SCH ×2 (09:01→20:50)
[2016-06-14] MEDS: BACITRACIN OINT TOPICAL SCH ×2 (09:01→20:51)
[2016-06-14] MEDS: DOCUSATE SOD 100 MG/10 ML UDC PEG SCH ×2 (09:01→20:47)
[2016-06-14] MEDS: METRONIDAZOLE 500 MG TAB PEG SCH ×3 (09:01→20:47)
[2016-06-14] MEDS: SALINE FLUSH 10 ML FLUSH SCH ×2 (09:01→20:50)
[2016-06-14] MEDS: Furosemide 20 MG/2 ML VIAL IV SCH ×2 (09:02→20:48)
[2016-06-14] MEDS: Carvedilol 6.25 MG TAB PEG SCH ×2 (09:05→20:49)
[2016-06-14] MEDS: ACETAMINOPHEN 650 MG/20.3 ML UDC PEG PRN ×2 (10:58→20:48)
[2016-06-14 11:32] VITALS: BP_SYST 106; TEMP 97.9
[2016-06-14 15:05] VITALS: BP_SYST 110; RESP 18; TEMP 97.8
[2016-06-14 19:52] VITALS: BP_SYST 110; RESP 18; TEMP 96.2
[2016-06-14] MEDS: MIRTAZAPINE 15 MG TAB PEG SCH (20:48)
[2016-06-14] MEDS: Atorvastatin 10 MG TAB PEG SCH (20:49)
[2016-06-15] VITALS (7 sets, daily range): BP systolic 98–112; RESP 16–18; TEMP 96–99.1
[2016-06-15] MEDS: DUONEB INH SCH ×6 (02:26→22:19)
[2016-06-15] MEDS: NEB-NACL 3% 4 ML NEBU INH SCH ×6 (02:26→22:18)
[2016-06-15] MEDS: SODIUM CHLORIDE 0.9% FLUSH BAG 500 ML IV SCH ×3 (06:00→06:40)
[2016-06-15] MEDS: NEB-BUDESONIDE 0.5 MG INH SCH ×2 (06:38→18:18)
[2016-06-15] MEDS: NEB-BROVANA 15 MCG/2 ML INH SCH ×2 (06:39→18:18)
[2016-06-15] MEDS: LEVOTHYROXINE 0.075 MG TAB PEG SCH (06:41)
[2016-06-15] MEDS: LANSOPRAZOLE 15 MG PEG SCH (06:41)
[2016-06-15] MEDS: METRONIDAZOLE 500 MG TAB PEG SCH ×3 (08:33→21:42)
[2016-06-15] MEDS: SACCHA BOULARDII 250MG CAP PEG SCH ×3 (08:33→21:42)
[2016-06-15] MEDS: Dronabinol 2.5 MG CAP PEG SCH ×2 (08:34→21:43)
[2016-06-15] MEDS: KCL 20 MEQ/15 ML UDC PEG SCH (08:34)
[2016-06-15] MEDS: AMITRIPTYLINE 25 MG TAB PEG SCH (08:34)
[2016-06-15] MEDS: SENNA 8.6 MG TAB PEG SCH ×2 (08:34→21:43)
[2016-06-15] MEDS: Carvedilol 6.25 MG TAB PEG SCH ×2 (08:34→21:43)
[2016-06-15] MEDS: AQUAPHOR OINT 1.75 OZ TOPICAL SCH ×2 (08:35→21:41)
[2016-06-15] MEDS: ACETAMINOPHEN 650 MG/20.3 ML UDC PEG PRN ×2 (08:35→21:42)
[2016-06-15] MEDS: FLUTICASONE 0.05% NA BTL NARE EACH SCH ×2 (08:35→21:41)
[2016-06-15] MEDS: BACITRACIN OINT TOPICAL SCH ×2 (08:36→21:42)
[2016-06-15] MEDS: SALINE FLUSH 10 ML FLUSH SCH ×2 (08:37→21:41)
[2016-06-15] MEDS: Furosemide 20 MG/2 ML VIAL IV SCH ×2 (08:37→21:41)
[2016-06-15] MEDS: DOCUSATE SOD 100 MG/10 ML UDC PEG SCH ×2 (08:37→21:42)
[2016-06-15] MEDS: GELCLAIR 15 ML GEL TOPICAL SCH ×3 (08:38→21:41)
[2016-06-15] MEDS ORDERED: KCL 20 MEQ/15 ML UDC PEG ONE (15:10)
[2016-06-15] MEDS: METOCLOPRAMIDE 10 MG/10 ML PEG SCH (16:55)
[2016-06-15] MEDS: Atorvastatin 10 MG TAB PEG SCH (21:43)
[2016-06-15] MEDS: MIRTAZAPINE 15 MG TAB PEG SCH (21:43)
[2016-06-16] MEDS: SODIUM CHLORIDE 0.9% FLUSH BAG 500 ML IV SCH ×3 (02:46→06:00)
[2016-06-16] MEDS: DUONEB INH SCH ×4 (03:00→15:00)
[2016-06-16] MEDS: NEB-NACL 3% 4 ML NEBU INH SCH ×4 (03:00→15:00)
[2016-06-16 03:10] VITALS: BP_SYST 96; RESP 18; TEMP 96.3
[2016-06-16] MEDS: NEB-BUDESONIDE 0.5 MG INH SCH (06:19)
[2016-06-16] MEDS: NEB-BROVANA 15 MCG/2 ML INH SCH (06:19)
[2016-06-16] MEDS: LEVOTHYROXINE 0.075 MG TAB PEG SCH (06:36)
[2016-06-16] MEDS: METOCLOPRAMIDE 10 MG/10 ML PEG SCH ×2 (06:36→11:59)
[2016-06-16] MEDS: ACETAMINOPHEN 650 MG/20.3 ML UDC PEG PRN (06:36)
[2016-06-16] MEDS: LANSOPRAZOLE 15 MG PEG SCH (06:38)
[2016-06-16 08:00] VITALS: BP_SYST 100; RESP 16; TEMP 97
[2016-06-16] MEDS ORDERED: KCL 20 MEQ/15 ML UDC PEG SCH (09:00)
[2016-06-16] MEDS: SALINE FLUSH 10 ML FLUSH SCH (09:07)
[2016-06-16] MEDS: FLUTICASONE 0.05% NA BTL NARE EACH SCH (09:08)
[2016-06-16] MEDS: AQUAPHOR OINT 1.75 OZ TOPICAL SCH (09:08)
[2016-06-16] MEDS: Furosemide 20 MG/2 ML VIAL IV SCH (09:08)
[2016-06-16] MEDS: GELCLAIR 15 ML GEL TOPICAL SCH (09:08)
[2016-06-16] MEDS: DOCUSATE SOD 100 MG/10 ML UDC PEG SCH (09:09)
[2016-06-16] MEDS: AMITRIPTYLINE 25 MG TAB PEG SCH (09:09)
[2016-06-16] MEDS: Carvedilol 6.25 MG TAB PEG SCH (09:09)
[2016-06-16] MEDS: METRONIDAZOLE 500 MG TAB PEG SCH (09:09)
[2016-06-16] MEDS: Dronabinol 2.5 MG CAP PEG SCH (09:10)
[2016-06-16] MEDS: BACITRACIN OINT TOPICAL SCH (09:10)
[2016-06-16] MEDS: SACCHA BOULARDII 250MG CAP PEG SCH (09:10)
[2016-06-16] MEDS: SENNA 8.6 MG TAB PEG SCH (09:10)
[2016-06-16 14:31] VITALS: BP_SYST 100; RESP 16; TEMP 97
== END 2016-06-16 15:26 | disposition home health service (06) | DRG 871 ==
LOC: ENRESERVDT → CANRESERV → ENRESERVTM → ER 08:45 → ENPENDDIS 13:34 → EMR 13:34 → PCU2 15:24 → ICU 15:54 → 4THE 05-20 10:42
PROVIDERS: ADMIT Hospitalist; ATTEND Hospitalist
PROC: 5A1945Z Respiratory Ventilation, 24-96 Consecutive Hours (ICD-10-PCS; principal; 2016-05-14)
PROC: 03HY32Z Insertion of Monitoring Device into Upper Artery, Percutaneous Approach (ICD-10-PCS; 2016-05-14)
PROC: 0BH17EZ Insertion of Endotracheal Airway into Trachea, Via Natural or Artificial Opening (ICD-10-PCS; 2016-05-14)
PROC: 0B9B8ZX Drainage of Left Lower Lobe Bronchus, Via Natural or Artificial Opening Endoscopic, Diagnostic (ICD-10-PCS; 2016-05-14)
PROC: 4A133B1 Monitoring of Arterial Pressure, Peripheral, Percutaneous Approach (ICD-10-PCS; 2016-05-14)
PROC: 4A133J1 Monitoring of Arterial Pulse, Peripheral, Percutaneous Approach (ICD-10-PCS; 2016-05-14)
PROC: 0DH63UZ Insertion of Feeding Device into Stomach, Percutaneous Approach (ICD-10-PCS; 2016-05-27)
DX: A41.02 Sepsis due to Methicillin resistant Staphylococcus aureus (principal); J15.212 Pneumonia due to Methicillin resistant Staphylococcus aureus; R65.21 Severe sepsis with septic shock; J69.0 Pneumonitis due to inhalation of food and vomit; I26.99 Other pulmonary embolism without acute cor pulmonale; G93.41 Metabolic encephalopathy; J96.02 Acute respiratory failure with hypercapnia; J96.01 Acute respiratory failure with hypoxia; J15.1 Pneumonia due to Pseudomonas; A04.7 Enterocolitis due to Clostridium difficile; E43 Unspecified severe protein-calorie malnutrition; N39.0 Urinary tract infection, site not specified; D62 Acute posthemorrhagic anemia; E87.1 Hypo-osmolality and hyponatremia; C82.10 Follicular lymphoma grade II, unspecified site; I50.32 Chronic diastolic (congestive) heart failure; A41.52 Sepsis due to Pseudomonas; Z87.891 Personal history of nicotine dependence; Z68.23 Body mass index [BMI] 23.0-23.9, adult; E87.6 Hypokalemia; B96.1 Klebsiella pneumoniae [K. pneumoniae] as the cause of diseases classified elsewhere; K12.0 Recurrent oral aphthae; E03.9 Hypothyroidism, unspecified; E78.5 Hyperlipidemia, unspecified; F41.9 Anxiety disorder, unspecified; F32.9 Major depressive disorder, single episode, unspecified; R13.10 Dysphagia, unspecified; K59.00 Constipation, unspecified; Z78.1 Physical restraint status; J44.9 Chronic obstructive pulmonary disease, unspecified; E83.42 Hypomagnesemia; Z95.810 Presence of automatic (implantable) cardiac defibrillator; D69.6 Thrombocytopenia, unspecified; E88.09 Other disorders of plasma-protein metabolism, not elsewhere classified; R00.0 Tachycardia, unspecified; I11.0 Hypertensive heart disease with heart failure; K21.9 Gastro-esophageal reflux disease without esophagitis
CPT/HCPCS: 36415; 36430; 36600; 70450; 71010; 74000; 80048; 80053; 80069; 80202; 81001; 82040; 82271; 82553; 82803; 82947; 83605; 83735; 83880; 84100; 84132; 84439; 84443; 84484; 85014; 85018; 85025; 85610; 85652; 85730; 86022; 86141; 86850; 86900; 86901; 86923; 87040; 87071; 87077; 87088; 87181; 87186; 87205; 87493; 87804; 88108; 88160; 89051; 93005; 93306; 93880; 93970; 94002; 94003; 94640; 94762; 94799; 96361; 96365; 96375; 99223; 99232; 99233; 99238; 99255; 99291

== ENCOUNTER 2016-06-21 09:36 | Emergency (ER) | payer MEDICARE, OTHER ==
[2016-06-21] MEDS ORDERED: EPINEPHrine 1 MG/10 ML SYR IV ONE (09:47)
== END 2016-06-21 11:23 | disposition expired ==
LOC: ER 09:36
DX: I46.9 Cardiac arrest, cause unspecified (principal)
CPT/HCPCS: 80047; 85014; 92950; 96374